=== PATIENT | female | born 1935 | race Caucasian/White ===

== ENCOUNTER 2017-04-09 06:28 | Day surgery (SDC) | payer OTHER ==
[~2017-04-09] VITALS: Ht 160 cm; Wt 81.0 kg
[2017-04-09] MEDS ORDERED: IOHEXOL 350 MG/ML 50 ML BTL (for Cath Lab) OTHER ONE (06:29)
[2017-04-09] MEDS ORDERED: ATOR20TA15 PO (06:46)
[2017-04-09] MEDS ORDERED: AMLO5TAB2 PO (06:46)
[2017-04-09] MEDS ORDERED: iron PO (06:46)
[2017-04-09] MEDS ORDERED: ECASA81 PO (06:46)
[2017-04-09] MEDS ORDERED: MULT-65 PO (06:46)
[2017-04-09 06:50] VITALS: BP 149/86; PULSE 86; RESP 18; O2SAT 98
[2017-04-09] MEDS ORDERED: NS 1000P @30 MLS/HR (KVO) IV SCH (07:00)
[2017-04-09 07:33] LABS: AUTOMATED NEUTROPHIL # 4.7 TH/MM3 (1.8-7.7); BASOPHIL # 0.1 TH/MM3 (0-0.2); BASOPHIL % 0.9 % (0.0-2.0); EOSINOPHIL # 0.1 TH/MM3 (0-0.4); EOSINOPHIL % 1.9 % (0.0-4.0); HEMOGLOBIN 14.4 GM/DL (11.6-15.3); LYMPH % 14.4 % (9.0-44.0); LYMPHOCYTE # 0.9 TH/MM3 (1.0-4.8); MEAN CELL VOLUME 91.8 FL (80.0-100.0); MEAN CORPUSCULAR HEMOGLOBIN 30.8 PG (27.0-34.0); MEAN CORPUSCULAR HGB CONC 33.6 % (32.0-36.0); MONO % 8.8 % (0.0-8.0); MONOCYTE # 0.6 TH/MM3 (0-0.9); PLATELET COUNT 188 TH/MM3 (150-450); RED BLOOD COUNT 4.68 MIL/MM3 (4.00-5.30); RED CELL DISTRIBUTION WIDTH 13.8 % (11.6-17.2); WHITE BLOOD COUNT 6.3 TH/MM3 (4.0-11.0)
[2017-04-09 08:46] LABS: INTERNATIONAL NORMALIZED RATIO 1.1 RATIO; PROTHROMBIN TIME - PATIENT 10.7 SEC (9.8-11.6)
[2017-04-09] MEDS ORDERED: HEPARIN-NS/PF FLUSH BAG 2,000 ML IV FLUSH ONE (08:50)
[2017-04-09] MEDS ORDERED: NITROGLYCERIN INJ 5 ML ONE (08:51)
[2017-04-09] MEDS ORDERED: VERAPAMIL HCL 5 MG/2 ML VIAL ONE (08:51)
[2017-04-09] MEDS ORDERED: HEPARIN SODIUM - IV 10,000 UNITS/10 ML VIAL ONE (08:51)
[2017-04-09 08:53] LABS: BICARBONATE 28.5 MEQ/L (21.0-32.0); CALCIUM 9.2 MG/DL (8.5-10.1); CREATININE 0.91 MG/DL (0.50-1.00)
[2017-04-09] MEDS ORDERED: MIDAZOLAM HCL 2 MG/2 ML VIAL ONE (08:58)
--- NOTE | 2017-04-09 09:57 | CATHPROC ---
fromAtoB HIS Report Study Information Study Number Admission Scheduled Start Study Start [id number] Apr 09 2017 6:28AM 04/09/2017 Apr 09 2017 8:54AM [place] Service Cardiac Catheterization Admit Source Facility Department Other [facility] - Client Services Manager Physician and Clinical Staff Initial Derrick Marin Tandem Mill Operator Tiffanie Haro,RN Recorder Ana Maria Chavez RT(R) (BS) Scrub Tiffanie Esposito RT(R) Procedures Performed Procedure Location (Site) Vessel Name Coronary Angiograms LCA Left Coronary Coronary Angiograms RCA Right Coronary L Heart Cath Wire insertion Radial (right) Radial Art. Equipment Time Assistant To The President Description Size Mfg Part Number Used/Scraped TRANSDUCER, TRUWAVE [id number] 09:11 DINERO SHORE * Used W/STOCKCOCK *[id number] *[id number] [id number] *[id number] [id number] *[id number] 09:11 [employer] PACK, CCL CUSTOM * Used *[id number] 09:11 [employer] SUPPORT, ARTERIAL ADULT [id number] *[id number] Used [id number] 09:27 [employer]/AVE EBU 4.0 SH Z2 GUIDE CATHETER FR 6 Used *[id number] BAND, RADIAL COMPRESSION TR [id number] 09:43 [employer] MEDICAL 24CM Used SHORT 24 *[id number] 09:11 [employer] MEDICAL WIRE, EXCHANGE 260CM 3MMJ 260CM Used *[id number] 09:11 NAMIC MANIFOLD, 4 PORT * Used *[id number] 09:11 [employer] OMNIPAQUE, 350 MG, 150ML 150ML [id number] Used [id number] 09:11 [employer] BLANKET,WARM AIR CCL * Used *[id number] SHEATH, FR6 TRANSRADIAL [id number] 09:11 [employer] FR 6 Used SLENDER 10CM *[id number] 09:26 [employer] PRIME WIRE, VERRATA 185CM 185CM [id number] *[id number] Used Equipment Model, Serial, Lot Number and Expiration Data Description Model Number Serial Number Lot Number Expiration Date EBU 4.0 SH Z2 GUIDE CATHETER [id number] 02-21-2019 PRIME WIRE, VERRATA 185CM [id number] 03-17-2020 History: Current Medications Medication Dosage/Unit Route Frequency Last Date/Time Taken Statins (any) History: Allergies Allergy Reaction No Known Allergies History: Risk Factors Family History of Hypertension Dyslipidemia Previous OR Previous Heart Failure Premature CAD Yes Yes No No No Prior Valve Prior PCI Prior CABG Surgery No No No Cerebrovascular Peripheral Artery Chronic Lung On Dialysis Diabetes Disease Disease Disease No No No No No History: Stress Tests Stress or Imaging Studies Performed Yes Standard Exercise Stress Test No Stress Echo No Stress Test SPECT Stress Test SPECT Result Stress Test SPECT Ischemia Risk/Extent Yes Positive Intermediate Stress Test CMR No Cardiac CTA Coronary Calcium Score No No History: Other Current Smoker No Labs Hgb (g/dl) Hct (%) RBC (MIL/MM3) WBC (l/cumm) Platelets (thousands) 11.60-17.00 35.00-51.00 4.00-5.90 4.00-11.00 150.00-450.00 14.4 43 4.6 6.3 188 Glucose (mg/dl) BUN (mg/dl) Creatinine (mg/dl) BUN:Creatinine (1:x) 74.00-106.00 7.00-18.00 0.50-1.30 10.00-20.00 92 22 0.9 24.4 Na (meq/l) K (meq/l) Cl (meq/l) CO2 (mmol/L) 136.00-145.00 3.50-5.10 98.00-107.00 21.00-32.00 142 3.7 107 28.5 INR (PTT:PT) 0.90-1.10 1.1 CPK-MB (ng/ML) 0.50-3.60 Not Drawn Medication Medication Total Dose (Bolus/Oral) Medication Total Dosage/Unit 1% XYLOCAINE 1 mL FENTANYL 25 mcg HEPARIN 5000 units RADIAL COCKTAIL 1 units VERSED 0.5 mg Medications (Bolus/Oral) Medication Time Given Dosage/Unit Administered By Reason FENTANYL 04/09/2017 9:08:51 AM 25 mcg Tiffanie Haro 25 mcg FENTANYL given in lab by Tiffanie Haro RN in Right Wrist via Peripheral IV. 1% XYLOCAINE 04/09/2017 9:09:05 AM 1 mL Derrick Bill 1 mL 1% XYLOCAINE given in lab by Derrick Bill in Right Radial via Subcutaneous. VERSED 04/09/2017 9:09:43 AM 0.5 mg Tiffanie Haro 0.5 mg VERSED given in lab by Tiffanie Haro, RN in Right Wrist via Peripheral IV. Ntg 200mcg Verapamil 2.5mg Heparin RADIAL COCKTAIL 04/09/2017 9:11:31 AM 1 units Derrick Bill 3000U 1 units RADIAL COCKTAIL given in lab by Derrick Bill via Radial. Reason: Ntg 200mcg Verapamil 2.5mg Heparin 3200U. HEPARIN 04/09/2017 9:28:32 AM 5000 units Tiffanie Haro 5000 units HEPARIN given in lab by Tiffanie Haro, RN in Right Wrist via Peripheral IV. Medication (Drip) Medication Time Given Dosage/Unit Concentration/Unit Diluent (ml) Solution IV Solutions 04/09/2017 8:55:01 AM 0 mL (IV) 500 NaCl .9 IV Solutions given in lab by Tiffanie Haro, RN in Right Wrist via Peripheral IV. Pump/Drip Flow = 30 ml/hr using NaCl .9. Initial Case Assessment Cardiovascular HR Rhythm NIBP Chest Pain 54 18 147/78 0 Edema Present Skin color Skin None Normal Warm Dry Circulatory - Right Pulses Dorsalis Pedis Femoral Radial 2 2 2 Scale (0,1,2,3,4,d) Circulatory - Left Pulses Dorsalis Pedis Femoral Radial 2 2 Scale (0,1,2,3,4,d) Circulatory - Lower Extremities Color Lower Right Color Lower Left Normal Normal Neurological State Oriented to time-place- Alert Moves all extremities person Respiration - General Respiration Rate SpO2 (%) (B/min) 15 98 Chronological Log Time Study Chronological Log 8:44:46 Patient arrived via Bed. 8:44:52 Patient Name, D.O.B, / Armband Verified By R.N. Vitals capture started with the following parameters, Patient=Adult, Interval=5 min, Initial Pr zurivi=022 mmHg, 8:53:43 Deflation Rate=5 mmHg, Cuff placed on Left Arm 8:53:55 Consent signed by the physician and the patient and verified by the Client Services Manager staff. 8:53:56 Pre-op and post- op instructions given; patient acknowledges understanding of instructions. 8:53:57 Verbal Stimulation=2 Physical Stimulation=2 Airway=2 Respiration=2 TOTAL=8. (0=absent, 1=li mited, 2=present) 8:53:59 Presedation assessment performed by Client Services Manager RN. 8:54:10 Allens test performed on the right radial and ulnar artery. 8:54:12 Vitals capture stopped. 8:54:22 Reference ECG taken 8:54:51 Allens test performed on the right radial and ulnar artery. 8:54:54 Patient has been NPO for More than 6Hrs. 8:54:56 Skin Breakdown none per pt 8:54:58 Patient Warmer Placed on the Table. 8:55:00 Miladys Prominences Protected 8:55:00 A # 20 IV was noted in the Wrist (right). Grade = 0 IV Solutions given in lab by Tiffanie Haro, RN in Right Wrist via Peripheral IV. Pump/Drip Flow = 30 ml/hr using NaCl 8:55:01 .9. 8:55:02 History and physical on the chart or being dictated. Assessment: Initial Case, HR=54 BPM, Rhythm=18, OSBV=226/78 mmhg, Chest Pain=0, Edema=None, [place] r=Normal, Skin = Warm, Dry Right Pulses: Ivan Ped=2, Femoral=2, Radial=2 Left Pulses: Ivan Ped=2, Femoral=2 8:55:02 Lower Right Extremities: Color=Normal Lower Left Extremities: Color=Normal Neurological: State=Alert, Ox3, FIORE Respiration: Resp=15 B/min, SpO2=98 % Vitals capture started with the following parameters, Patient=Adult, Interval=5 min, Initial Pre zlnsi=719 mmHg, 8:58:22 Deflation Rate=5 mmHg, Cuff placed on Left Arm 8:59:03 HR=54 bpm, QKYX=764/78 mmhg, SpO2=98.0 %, Resp=21 B/min, Pain=0, Maryjo=10, Almanzar=2 9:00:49 Right Radial and groin(s) prepped with 2% chlorhexidine, and draped after a 3 min. waiting t robi. 9:03:57 HR=65 bpm, ISNW=725/75 mmhg, SpO2=98.0 %, Resp=24 B/min, Pain=0, Maryjo=10, Almanzar=2 9:06:19 Pressure channel 1 zeroed. Time Out. Correct patient, correct procedure, correct physician, power injector not loaded with contrast with surgical 9:08:24 team present. Time Out Concurred by MD and individual staff in procedure. 9:08:39 Case Start 9:08:51 25 mcg FENTANYL given in lab by Tiffanie Haro, RN in Right Wrist via Peripheral IV. 9:08:59 HR=57 bpm, ATHK=744/75 mmhg, SpO2=97.0 %, Resp=37 B/min, Pain=0, Maryjo=10, Almanzar=2 9:09:05 1 mL 1% XYLOCAINE given in lab by Derrick Bill in Right Radial via Subcutaneous. 9:09:43 0.5 mg VERSED given in lab by Tiffanie Haro, RN in Right Wrist via Peripheral IV. 9:10:52 Access site was right Radial Artery. A SHEATH, FR6 TRANSRADIAL SLENDER 10CM FR 6 was advanced into the Radial (right) using the Percu paulo 9:11:04 technique. 1 units RADIAL COCKTAIL given in lab by Derrick Bill via Radial. Reason: Ntg 200mcg Verap kvng 2.5mg 9:11:31 Heparin 3200U. A JR 4.0 INFINITI CATHETER FR 5 was advanced over a wire. OMNIPAQUE, 350 MG, 150ML 150ML was use d for 9:12:29 injections. 9:14:02 HR=65 bpm, NUZA=231/65 mmhg, SpO2=90.0 %, Resp=24 B/min, Pain=0, Maryjo=10, Almanzar=2 Recorded Pressure: LV, HR=77, Condition=Condition 1 9:14:32 (Left Ventricle) LV 111/0/3 Recorded Pressure: LV, Ao, HR=65, Condition=Condition 1 9:14:56 (Left Ventricle) LV 100/2/7, (Aorta) Ao 102/53/75 Recorded Pressure: Ao, HR=86, Condition=Condition 1 9:15:13 (Aorta) Ao 94/53/72 9:15:43 The RCA was injected and visualized at various angles. OMNIPAQUE, 350 MG, 150ML 150ML used. After removing the current catheter a JL 3.5 INFINITI CATHETER FR 5 was advanced over a WIRE, EX CHANGE 260CM 9:16:41 3MMJ 260CM. 9:18:55 HR=65 bpm, GMRU=869/69 mmhg, SpO2=94.0 %, Resp=16 B/min, Pain=0, Maryjo=10, Almanzar=2 After removing the current catheter a JL 4.0 INFINITI CATHETER FR 5 was advanced over a WIRE, EX CHANGE 260CM 9:20:42 3MMJ 260CM. 9:22:57 The LCA was injected and visualized at various angles. OMNIPAQUE, 350 MG, 150ML 150ML used. 9:23:58 HR=59 bpm, EYRG=321/72 mmhg, SpO2=98.0 %, Resp=11 B/min, Pain=0, Maryjo=10, Almanzar=2 9:26:45 A WIRE, EXCHANGE 260CM 3MMJ 260CM was inserted via Radial (right). 9:27:04 Catheter was removed A EBU 4.0 SH Z2 GUIDE CATHETER FR 6 was advanced over a wire. OMNIPAQUE, 350 MG, 150ML 150ML w as used for 9:28:09 injections. 9:28:32 5000 units HEPARIN given in lab by Tiffanie Haro RN in Right Wrist via Peripheral IV. 9:28:59 HR=57 bpm, ZYWF=551/72 mmhg, NqN8=499.0 %, Resp=19 B/min, Pain=0, Maryjo=10, Almanzar=2 9:31:26 A PRIME WIRE, VERRATA 185CM 185CM was inserted via Radial (right). 9:33:58 HR=60 bpm, RGGO=145/75 mmhg, SpO2=99.0 %, Resp=15 B/min, Pain=0, Maryjo=10, Almanzar=2 9:34:33 Flow Wire was was placed in the LCA. The IFR measures 0.98 Percent. 9:36:49 Flow Wire was was placed in the LAD Mid. The FFR measures ~FFR~ percent. The IFR measures 0.98 Percent. 9:39:01 HR=53 bpm, YHXK=256/71 mmhg, SpO2=99.0 %, Resp=14 B/min, Pain=0, Maryjo=10, Almanzar=2 9:42:29 Wire removed 9:42:42 A WIRE, EXCHANGE 260CM 3MMJ 260CM was inserted via Radial (right). 9:42:54 Catheter was removed 9:42:55 Wire removed 9:42:58 Case End 9:43:07 Catheter(s) removed without difficulty 9:43:17 Bedside Report will be given. 9:43:51 A Left Heart Cath was performed. 9:44:37 HR=88 bpm, QIJL=622/87 mmhg, SpO2=97.0 %, Resp=18 B/min, Pain=0, Maryjo=10, Almanzar=2 Radial Compression Device Used. 13 mLs of air placed in BAND, RADIAL COMPRESSION TR SHORT 24 2 4CM. Affected 9:45:11 hand 98 % O2 saturation. 9:49:01 HR=57 bpm, NCVM=743/75 mmhg, SpO2=99.0 %, Resp=21 B/min, Pain=0, Maryjo=10, Almanzar=2 9:51:11 Vitals capture stopped. 9:56:45 Patient moved to [facility] End Study - Contrast Media Used In Study Contrast Total Opened (mL) Total Used (mL) Total Wasted (mL) Omnipaque 45 45 0 End Study - Maximum Contrast Load Max Contrast Load (mL) 450.0 End Study - Radiation Exposure Fluoro Time (minutes) 9.4 End Study - Sheaths Sheaths Pulled By Sheath Hold Time (min) Tiffanie Esposito End Study - Patient Disposition Complications Transferred To Interventional Outcome No Client Services Manager Holding No attempt made
[2017-04-09] MEDS ORDERED: MISC INFORMATION XX ONE (10:00)
--- NOTE | 2017-04-09 13:49 | EKG ---
Date Performed: 04/09/2017 Time Performed: 07:25:52 PTAGE: 81 years EKG: Sinus bradycardia. Normal ECG except for rate NO PREVIOUS TRACING 04/08/2017 1925 DOCTOR: Lorena Mcgraw Interpretating Date/Time 04/09/2017 13:48:38
--- NOTE | 2017-04-10 08:14 | MA ---
cc: DERRICK DEGROOT DO DATE 04/09/2017 PROCEDURE 1. Left heart catheterization. 2. Coronary angiogram. 3. Moderate sedation, 30 minutes. 4. iFR (instantaneous wave-free ratio) of LAD. 5. iFR (instantaneous wave-free ratio) of diagonal. PREPROCEDURE DIAGNOSIS 1. Abnormal stress test. 2. Abnormal EKG. 3. Preoperative cardiovascular evaluation. POSTPROCEDURE DIAGNOSIS Mild coronary artery disease. MEDICATION Versed 0.5 mg, fentanyl 25 mcg, heparin 8200 units, nitro 200 mcg, verapamil 2.5 mg. CONTRAST USED 45 cc. FLUOROSCOPY 9.4 minutes. SEDATION Moderate sedation, 30 minutes. ESTIMATED BLOOD LOSS 10 cc. PROCEDURAL SUMMARY Beatriz Gilbert is a pleasant 81-year-old female who sees my partner Dr. Lugo in the office. She underwent stress testing before knee surgery. This was found to be abnormal and she was recommended cardiac catheterization. The risks, benefits and alternatives were explained to her and she consented to such. She was brought to the lab and prepped in the usual sterile fashion. The right radial artery was accessed using a modified Seldinger technique and placement of a 5/6 Martiniquais Slender sheath. This was easily aspirated and flushed. A JR4 was advanced over a J-wire to the ascending aorta and across the aortic valve for measurement of left ventricular pressure. This was pulled back across the aortic valve showing no significant gradient of aortic stenosis. The JR4 was used for selective angiography of the right coronary artery system. This was exchanged out for a JL 3.5 which was used for selective angiography of the left coronary artery system. As there was concern for anterior ischemia on her stress test as well as EKG changes concerning for ischemia in this area but appearing to only be moderate disease on angiogram it was felt that it was appropriate to iFR the LAD and diagonal to define that these lesions were not significant enough to intervene on before surgery. An EBU 4 guide was inserted. Heparin was given as an anticoagulant. A Verrata wire was taken down the diagonal as this was the bigger of the vessels compared to the LAD and iFR was measured at 0.98 showing nonsignificant stenosis. The Verrata was then pulled back and inserted into the LAD and iFR was done again at 0.99 for the LAD showing nonsignificant stenosis. The wire was removed. Angiogram showed no disruption of the coronary anatomy. The guide was removed over a J-wire. A radial band was placed over the arteriotomy site for hemostasis. 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 FINDINGS Left Main: Normal size vessel with no significant disease. It bifurcates into an LAD and circumflex. LAD: 20% disease in the proximal portion. It gives off one large diagonal which is overall larger than the LAD. At the ostial portion it has a 50% stenosis (iFR 0.98 showing nonsignificant stenosis) and then bifurcates into an upper and lower branch. LAD continues as a smaller vessel past this with 40% stenosis and no significant disease. Left Circumflex: Overall a small vessel with mild luminal irregularities throughout, but no significant disease. RCA: Large dominant vessel with mild luminal irregularities supplying a PDA as well as a large PLV with no significant disease. LVEDP is 7. IMPRESSION 1. Mild coronary artery disease as above. 2. Preoperative cardiovascular evaluation for knee surgery. RECOMMENDATIONS 1. Ms. Gilbert appears to have mild coronary artery disease. She will be continued on medical management. 2. She will follow-up with Dr. Lugo for final cardiovascular risk assessment before knee surgery. Thank you for allowing me to see Beatriz Gilbert. If there are any questions, please do not hesitate to call. Derrick Degroot DO VGP/BT /11:51 PM /7:56 AM
== END 2017-04-09 14:55 | disposition home or self-care (01) ==
LOC: HDOC 06:28 → HDIC 06:28 → HDOC 14:55
PROVIDERS: ATTEND Nuclear Medicine Nuclear Cardiology
DX: I25.10 Atherosclerotic heart disease of native coronary artery without angina pectoris (principal); R94.31 Abnormal electrocardiogram [ECG] [EKG]; I11.9 Hypertensive heart disease without heart failure; Q25.46 Tortuous aortic arch; E78.5 Hyperlipidemia, unspecified; E55.9 Vitamin D deficiency, unspecified; I77.9 Disorder of arteries and arterioles, unspecified; K44.9 Diaphragmatic hernia without obstruction or gangrene; R06.02 Shortness of breath; B37.9 Candidiasis, unspecified; Z85.3 Personal history of malignant neoplasm of breast
CPT/HCPCS: 80048; 85025; 85610; 85730; 93005; 93458; 93571; 93572; 99152; 99153; C1769; C1887; C1893; J1644; J2250; J3010; Q9967

== ENCOUNTER 2017-06-28 18:53 | Observation (INO) | payer OTHER ==
[~2017-06-28] VITALS: Ht 162.6 cm; Wt 84.9 kg
[~2017-06-28 18:53] MED LIST: AMLO5TAB2 PO; ATOR20TA15 PO; ECASA81 PO; MULT-65 PO; iron PO
[2017-06-28 18:56] VITALS: BP 141/70; PULSE 78; RESP 26; TEMP 99; O2SAT 96
[2017-06-28] MEDS ORDERED: SODIUM CHLOR 0.9% 1000 ML INJ 1,000 ML IV SCH (19:01)
[2017-06-28 19:05] VITALS: RESP 16; O2SAT 96
--- NOTE | 2017-06-28 19:09 | PD ---
HPI Chief Complaint: Abdominal Pain Time Seen by Provider: 19:01 Travel History International Travel<30 days: No Contact w/Intl Traveler<30days: No Traveled to known affect area: No History of Present Illness HPI 81-year-old female complains of abdominal pain with nausea vomiting. Patient states that his symptoms started this afternoon. Patient states that abdominal pain and sharp pain burning pain localized to the upper abdomen. Patient denies any pain radiation. Patient states that the pain has been constant since this afternoon. Patient states that she has intermittent nausea vomiting. Patient noticed small amount of coffee-ground material with the emesis. Patient states that the pain radiates to the right shoulder. Patient denies any headache. Patient denies any chest pain or shortness of breath. Patient denies any back pain. 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 Patient has history of breast cancer status post left mastectomy. Patient also has history hypertension, hyperlipidemia, osteoarthritis, CAD status post angioplasty. Patient on aspirin 81 mg 2 tablets daily. Patient status post Left knee replacement a week ago. PFSH Past Medical History Hx Anticoagulant Therapy: Yes (162MG ASA) Autoimmune Disease: No Blood Disorders: No Cancer: Yes (L BREAST) Cardiovascular Problems: No GERD: Yes Genitourinary: No Hypertension: Yes Musculoskeletal: Yes Neurologic: No Psychiatric: No Respiratory: No Past Surgical History Abdominal Surgery: Yes (KIDNEY STONES) AICD: No Cardiac Surgery: No Ear Surgery: No Endocrine Surgery: No Eye Surgery: No Genitourinary Surgery: No Gynecologic Surgery: Yes (OVARY REMOVED) Oral Surgery: No Pacemaker: No Thoracic Surgery: No Social History Alcohol Use: No Tobacco Use: No Substance Use: No Allergies-Medications (Allergen,Severity, Reaction): Coded Allergies: No Known Allergies (Verified Allergy, Unknown, 06/28/17) Reported Meds & Prescriptions Reported Meds & Active Scripts Active Reported Multi-Vitamin Daily (Multiple Vitamin) 1 Tab Tab 1 Tab PO DAILY [iron] 325 Mg PO DAILY Atorvastatin (Atorvastatin Calcium) 20 Mg Tab 20 Mg PO HS Aspirin DR (Aspirin) 81 Mg Tabdr 81 Mg PO DAILY Amlodipine (Amlodipine Besylate) 5 Mg Tab 5 Mg PO DAILY Review of Systems General / Constitutional: No: Fever Eyes: No: Visual changes HENT: No: Headaches Cardiovascular: No: Chest Pain or Discomfort Respiratory: No: Shortness of Breath Gastrointestinal: Positive: Nausea, Vomiting, Abdominal Pain, Hematemesis Genitourinary: No: Dysuria Musculoskeletal: No: Pain Skin: No Rash Neurologic: No: Weakness Psychiatric: No: Depression Endocrine: No: Polydipsia Hematologic/Lymphatic: No: Easy Bruising Physical Exam Narrative GENERAL: Well-nourished, well-developed patient. SKIN: Focused skin assessment warm/dry. HEAD: Normocephalic. EYES: No scleral icterus. No injection or drainage. NECK: Supple, trachea midline. No JVD or lymphadenopathy. CARDIOVASCULAR: Regular rate and rhythm without murmurs, gallops, or rubs. RESPIRATORY: Breath sounds equal bilaterally. No accessory muscle use. GASTROINTESTINAL: Abdomen soft, non-tender, nondistended. MUSCULOSKELETAL: No cyanosis, or edema. BACK: Nontender without obvious deformity. No CVA tenderness. Neurologic exam normal. Data Data Last Documented VS Vital Signs Date Time Temp Pulse Resp B/P (MAP) Pulse Ox O2 Delivery O2 Flow Rate FiO2 06/28/17 21:00 74 16 137/70 (92) 96 Room Air 06/28/17 18:56 99.0 Orders Orders Complete Blood Count With Diff (06/28/17 19:) Comprehensive Metabolic Panel (06/28/17 19:) Lipase (06/28/17 19:01) Prothrombin Time / Inr (Pt) (06/28/17 19:) Urinalysis - C+S If Indicated (06/28/17 19:01) Ct Abd/Pel W Iv Contrast(Rout) (06/28/17 19:01) Iv Access Insert/Monitor (06/28/17 19:) Ecg Monitoring (06/28/17 19:) Oximetry (06/28/17 19:) Ondansetron Inj (Zofran Inj) (06/28/17 19:15) Pantoprazole Inj (Protonix Inj) (06/28/17 19:15) Sodium Chlor 0.9% 1000 Ml Inj (Ns 1000 M (06/28/17 19:01) Sodium Chloride 0.9% Flush (Ns Flush) (06/28/17 19:15) Urine Culture (06/28/17 19:20) Ceftriaxone Inj (Rocephin Inj) (06/28/17 21:45) Labs Laboratory Tests Test 06/28/17 19:12 06/28/17 19:20 White Blood Count 8.0 TH/MM3 Red Blood Count 4.39 MIL/MM3 Hemoglobin 12.9 GM/DL Hematocrit 39.9 % Mean Corpuscular Volume 91.0 FL Mean Corpuscular Hemoglobin 29.3 PG Mean Corpuscular Hemoglobin Concent 32.2 % Red Cell Distribution Width 13.5 % Platelet Count 253 TH/MM3 Mean Platelet Volume 8.8 FL Neutrophils (%) (Auto) 80.5 % Lymphocytes (%) (Auto) 9.0 % Monocytes (%) (Auto) 6.8 % Eosinophils (%) (Auto) 0.6 % Basophils (%) (Auto) 3.1 % Neutrophils # (Auto) 6.6 TH/MM3 Lymphocytes # (Auto) 0.7 TH/MM3 Monocytes # (Auto) 0.5 TH/MM3 Eosinophils # (Auto) 0.0 TH/MM3 Basophils # (Auto) 0.2 TH/MM3 CBC Comment DIFF FINAL Differential Comment Prothrombin Time 10.3 SEC Prothromb Time International Ratio 1.0 RATIO Blood Urea Nitrogen 22 MG/DL Creatinine 0.96 MG/DL Random Glucose 147 MG/DL Total Protein 7.2 GM/DL Albumin 2.6 GM/DL Calcium Level 9.5 MG/DL Alkaline Phosphatase 95 U/L Aspartate Amino Transf (AST/SGOT) 28 U/L Alanine Aminotransferase (ALT/SGPT) 18 U/L Total Bilirubin 0.9 MG/DL Sodium Level 138 MEQ/L Potassium Level 4.5 MEQ/L Chloride Level 102 MEQ/L Carbon Dioxide Level 27.9 MEQ/L Anion Gap 8 MEQ/L Estimat Glomerular Filtration Rate 56 ML/MIN Lipase 1162 U/L Urine Color YELLOW Urine Turbidity CLEAR Urine pH 6.5 Urine Specific [place] 1.010 Urine Protein NEG mg/dL Urine Glucose (UA) NEG mg/dL Urine Ketones NEG mg/dL Urine Occult Blood NEG Urine Nitrite NEG Urine Bilirubin NEG Urine Urobilinogen 0.2 MG/DL Urine Leukocyte Esterase LARGE Urine RBC 0-3 /hpf Urine WBC 20-24 /hpf Urine Squamous Epithelial Cells 6-8 /hpf Urine Renal Epithelial Cells 0-5 /hpf Urine Bacteria OCC /hpf Urine Yeast (Budding) Microscopic Urinalysis Comment CULTURE INDICATED MDM Medical Decision Making Medical Screen Exam Complete: Yes Emergency Medical Condition: Yes Interpretation(s) 2030 8 PM. CBC within normal limits. WBC 8.0. 80 neutrophil. BUN 22. Creatinine 0.96. GFR 56. Albumin 2.6. Lipase 1162. UA positive for WBC and bacteria. Differential Diagnosis Differential diagnosis includes gastroenteritis, gastritis, PUD, pancreatitis, cholecystitis, colitis, UTI, pyelonephritis, nephrolithiasis, dehydration, upper GI bleed. Narrative Course 81-year-old female with abdominal pain, nausea vomiting and possible coffee- ground emesis. Normal saline solution 100 cc an hour. Protonix 40 mg IV. Zofran 4 mg IV. Rocephin 1 g IV given. Diagnosis Primary Impression: Acute pancreatitis Qualified Codes: K85.90 - Acute pancreatitis without necrosis or infection, unspecified Additional Impression: UTI (urinary tract infection) Qualified Codes: N30.00 - Acute cystitis without hematuria Admitting Information Admitting Physician Requests: Admit Jon Brooks MD June 28, 2017 19:09
[2017-06-28] MEDS ORDERED: PANTOPRAZOLE SODIUM 40 MG VIAL IVP ONE (19:15)
[2017-06-28] MEDS ORDERED: SODIUM CHLORIDE 0.9% FLUSH 10 ML FLUSH IV FLUSH PRN ×2 (19:15→22:00)
[2017-06-28] MEDS ORDERED: ONDANSETRON HCL 4 MG/2 ML VIAL IVP ONE (19:15)
[2017-06-28 19:20] LABS: AUTOMATED NEUTROPHIL # 6.6 TH/MM3 (1.8-7.7); BASOPHIL # 0.2 TH/MM3 (0-0.2); BASOPHIL % 3.1 % (0.0-2.0); EOSINOPHIL % 0.6 % (0.0-4.0); HEMATOCRIT 39.9 % (35.0-46.0); HEMOGLOBIN 12.9 GM/DL (11.6-15.3); LYMPHOCYTE # 0.7 TH/MM3 (1.0-4.8); MEAN CORPUSCULAR HEMOGLOBIN 29.3 PG (27.0-34.0); MEAN CORPUSCULAR HGB CONC 32.2 % (32.0-36.0); MEAN PLATELET VOLUME 8.8 FL (7.0-11.0); MONO % 6.8 % (0.0-8.0); MONOCYTE # 0.5 TH/MM3 (0-0.9); NEUT % 80.5 % (16.0-70.0); PLATELET COUNT 253 TH/MM3 (150-450); RED BLOOD COUNT 4.39 MIL/MM3 (4.00-5.30); RED CELL DISTRIBUTION WIDTH 13.5 % (11.6-17.2)
[2017-06-28 19:26] LABS: CHLORIDE 102 MEQ/L (98-107); SODIUM (NA) 138 MEQ/L (136-145)
[2017-06-28 19:26] LABS: BILIRUBIN, URINE NEG (NEG); BLOOD, URINE NEG (NEG); GLUCOSE,URINE NEG (NEG); KETONE, URINE NEG (NEG); NITRITE,URINE NEG (NEG); PH, URINE 6.5 (5.0-8.5); URINE COLOR YELLOW (YELLW/STRAW); URINE LEUKOCYTE ESTERASE LARGE (NEG)
[2017-06-28 19:29] LABS: CALCIUM 9.5 MG/DL (8.5-10.1)
[2017-06-28 19:30] LABS: ALBUMIN 2.6 GM/DL (3.4-5.0); BICARBONATE 27.9 MEQ/L (21.0-32.0); BLOOD UREA NITROGEN 22 MG/DL (7-18); GLUCOSE,RANDOM 147 MG/DL (74-106); PROTHROMBIN TIME - PATIENT 10.3 SEC (9.8-11.6)
[2017-06-28 19:33] LABS: RBC, URINE 0-3 /hpf (0-3); RENAL EPITHELIAL CELLS 0-5 /hpf
[2017-06-28 19:33] LABS: ALT (GPT) 18 U/L (10-53); AST (GOT) 28 U/L (15-37); CREATININE 0.96 MG/DL (0.50-1.00); GLOMERULAR FILTRATION RATE 56 ML/MIN (>89)
[2017-06-28 19:34] LABS: BACTERIA, URINE OCC /hpf
[2017-06-28 19:35] LABS: TOTAL BILIRUBIN ADULT 0.9 MG/DL (0.2-1.0); TOTAL PROTEIN 7.2 GM/DL (6.4-8.2)
[2017-06-28 19:36] LABS: ALKALINE PHOSPHATASE 95 U/L (45-117)
[2017-06-28 21:00] VITALS: BP 137/70; PULSE 74; RESP 16; O2SAT 96
[2017-06-28] MEDS ORDERED: cefTRIAXone INJ 1,000 MG in SODIUM CHLORIDE 0.9% INJ 100 ML IV ONE (21:45)
[2017-06-28] MEDS ORDERED: IOHEXOL 350 MG/ML 10 ML VIAL (for RAD DIAG) IVCONTRAST ONE (21:48)
--- NOTE | 2017-06-28 21:57 | RADRPT ---
EXAM DATE/TIME: 06/28/2017 21:13 [facility] COMPARISON: No previous studies available for comparison. INDICATIONS : Epigastric pain. IV CONTRAST: 100 cc Omnipaque 350 (iohexol) IV ORAL CONTRAST: No oral contrast ingested. RADIATION DOSE: 16.87 CTDIvol (mGy) MEDICAL HISTORY : Hypertension. Gastroesophageal reflux disease. Hernia, hiatal. SURGICAL HISTORY : Non-responsive. oophorectomy. ENCOUNTER: Initial ACUITY: 1 day PAIN SCALE: 5/10 LOCATION: Bilateral upper quadrant TECHNIQUE: Volumetric scanning of the abdomen and pelvis was performed. Using automated exposure control and ad justment of the mA and/or kV according to patient size, radiation dose was kept as low as reasonably achievable to obtain optimal diagnostic quality images. DICOM format image data is available electro nically for review and comparison. FINDINGS: Examination is degraded by patient motion. LOWER LUNGS: Stomach is intrathoracic. There is mild atelectasis in the left base. LIVER: Homogeneous density without lesion. There is no dilation of the biliary tree. No calcified gallston es. SPLEEN: Normal size without lesion. PANCREAS: Within normal limits. KIDNEYS: Left kidney is atrophic. Nonobstructing calcification is present in the apical cortex. Nonobstructing stones in the posterior upper pole collecting system of the right kidney. ADRENAL GLANDS: Within normal limits. VASCULAR: There is no aortic aneurysm. BOWEL/MESENTERY: The stomach is intrathoracic, flipped into the lower chest cavity in organoaxial fashion. There is mi ld gastric distention. The bowel is otherwise focally unremarkable. ABDOMINAL WALL: Within normal limits. RETROPERITONEUM: There is no lymphadenopathy. BLADDER: No wall thickening or mass. REPRODUCTIVE: Within normal limits. INGUINAL: There is no lymphadenopathy or hernia. MUSCULOSKELETAL: Within normal limits for patient age. CONCLUSION: Motion degraded exam. Mildly distended intrathoracic stomach. Atrophic left kidney. Nonobstructing kidney stones. No other definite acute CT findings in the abdomen or pelvis. Sawyer Kincaid MD on June 28, 2017 at 21:50 Board Certified Radiologist. This report was verified electronically.
[2017-06-28] MEDS ORDERED: SENNOSIDES 8.6 MG TAB PO PRN (22:00)
[2017-06-28] MEDS ORDERED: MAGNESIUM HYDROXIDE SUSP 30 ML CUP PO PRN (22:00)
[2017-06-28] MEDS ORDERED: ONDANSETRON HCL 4 MG/2 ML VIAL IVP PRN (22:00)
[2017-06-28] MEDS ORDERED: LACTULOSE SYRUP 20 GM/30 ML CUP PO PRN (22:00)
[2017-06-28] MEDS ORDERED: BISACODYL 10 MG SUPP RECTAL PRN (22:00)
[2017-06-28] MEDS ORDERED: NALOXONE HCL 0.4 MG/ML AMP IV PUSH PRN (22:00)
[2017-06-28] MEDS ORDERED: ACETAMINOPHEN 325 MG TAB PO PRN (22:00)
[2017-06-28] MEDS: SODIUM CHLOR 0.9% 1000 ML INJ 1,000 ML IV SCH (22:45)
[2017-06-28] MEDS: HEPARIN SODIUM - SQ 10,000 UNITS/ML VIAL SQ SCH (23:40)
[2017-06-28 23:41] VITALS: BP 127/62
[2017-06-29] MEDS ORDERED: MORPHINE SULFATE 4 MG/ML INJ IV PUSH ONE (00:15)
[2017-06-29 00:34] VITALS: BP 129/63; PULSE 74; RESP 20; TEMP 99.1; O2SAT 98
[2017-06-29] MEDS: SODIUM CHLOR 0.9% 1000 ML INJ 1,000 ML IV SCH ×2 (04:01→10:26)
[2017-06-29 06:44] LABS: CHLORIDE 109 MEQ/L (98-107); SODIUM (NA) 143 MEQ/L (136-145)
[2017-06-29 06:51] LABS: BASOPHIL % 0.6 % (0.0-2.0); EOSINOPHIL # 0.1 TH/MM3 (0-0.4); EOSINOPHIL % 2.2 % (0.0-4.0); HEMATOCRIT 33.4 % (35.0-46.0); HEMOGLOBIN 10.4 GM/DL (11.6-15.3); LYMPH % 15.2 % (9.0-44.0); MEAN CELL VOLUME 90.9 FL (80.0-100.0); MEAN CORPUSCULAR HEMOGLOBIN 28.5 PG (27.0-34.0); MEAN CORPUSCULAR HGB CONC 31.3 % (32.0-36.0); MEAN PLATELET VOLUME 8.5 FL (7.0-11.0); MONO % 10.2 % (0.0-8.0); MONOCYTE # 0.7 TH/MM3 (0-0.9); NEUT % 71.8 % (16.0-70.0); PLATELET COUNT 227 TH/MM3 (150-450); RED BLOOD COUNT 3.67 MIL/MM3 (4.00-5.30); RED CELL DISTRIBUTION WIDTH 13.4 % (11.6-17.2); WHITE BLOOD COUNT 6.8 TH/MM3 (4.0-11.0)
[2017-06-29 07:23] LABS: ALBUMIN 2.1 GM/DL (3.4-5.0); ALKALINE PHOSPHATASE 66 U/L (45-117); ALT (GPT) 15 U/L (10-53); AST (GOT) 15 U/L (15-37); BICARBONATE 26.4 MEQ/L (21.0-32.0); BLOOD UREA NITROGEN 15 MG/DL (7-18); CALCIUM 8.1 MG/DL (8.5-10.1); CREATININE 0.68 MG/DL (0.50-1.00); GLOMERULAR FILTRATION RATE 83 ML/MIN (>89); GLUCOSE,RANDOM 93 MG/DL (74-106); TOTAL BILIRUBIN ADULT 0.6 MG/DL (0.2-1.0); TOTAL PROTEIN 5.7 GM/DL (6.4-8.2)
[2017-06-29] MEDS ORDERED: MORPHINE SULFATE 4 MG/ML INJ IV PUSH PRN (08:00)
[2017-06-29] MEDS ORDERED: SODIUM CHLORIDE 0.9% FLUSH 10 ML FLUSH IV FLUSH SCH (09:00)
[2017-06-29] MEDS ORDERED: DOCUSATE SODIUM 50 MG/SENNA 8.6 MG TAB PO SCH (09:00)
[2017-06-29 09:29] VITALS: BP 120/58; PULSE 65; RESP 18; TEMP 98.9; O2SAT 95
[2017-06-29] MEDS ORDERED: amLODIPine BESYLATE 5 MG TAB PO SCH (09:30)
[2017-06-29] MEDS ORDERED: PANTOPRAZOLE SOD 40 MG DELAYED RELEASE TAB PO SCH (09:30)
[2017-06-29] MEDS ORDERED: MULTIVITAMIN TAB PO SCH (10:00)
--- NOTE | 2017-06-29 11:56 | RADRPT ---
EXAM DATE/TIME: 06/29/2017 10:49 [facility] COMPARISON: No previous studies available for comparison. INDICATIONS : Nausea and vomiting. MEDICAL HISTORY : Hypercholesterolemia. Gastroesophageal reflux disease. Osteoporosis. Hypertension. Kidney stones. Niesha ast cancer. Coronary artery disease. SURGICAL HISTORY : Total knee replacement, left. Appendectomy. Cardiac catheterization. Left mastectomy. Right ankle s urgery. Completed radiation therapy. Left oophorectomy. Angioplasty. ENCOUNTER: Initial ACUITY: 2 days PAIN SCORE: 3/10 LOCATION: Right upper quadrant MEASUREMENTS: LIVER: 11.4 cm length COMMON DUCT: 5 mm RIGHT KIDNEY: 11.7 x 4.7 x 5.3 cm SPLEEN: 10.0 cm length FINDINGS: LIVER: Normal echotexture without focal lesion or ductal dilatation. COMMON DUCT: No intraluminal mass or stone visualized. GALLBLADDER: Contains no stones, demonstrates no wall thickening or pericholecystic fluid. PANCREAS: The visualized portions are within normal limits. RIGHT KIDNEY: No hydronephrosis, stone or mass. SPLEEN: No focal lesion. CONCLUSION: Negative exam. Roni Nieves MD on June 29, 2017 at 11:50 Board Certified Radiologist. This report was verified electronically.
[2017-06-29] MEDS: HEPARIN SODIUM - SQ 10,000 UNITS/ML VIAL SQ SCH (11:58)
--- NOTE | 2017-06-29 12:01 | HHI.HP ---
[facility] Shahriar Hernandez MD Admission Diagnosis Acute pancreatitis. UTI. Diagnoses: Chief Complaint: Abdominal pain nausea and vomiting Travel History International Travel<30 Days: No Contact w/Intl Traveler <30 Da: No Traveled to Known Affected Are: No History of Present Illness This patient is an 81-year-old female with a history of left knee replacement done recently at another facility. She had been in the rehab facility post surgical treatment of the knee and went to an [employer] [facility] and subsequently had some nausea and vomiting and severe midepigastric to right upper quadrant pain. This is similar to previous episodes which she has had over the past 12 years. Those previous episodes were quite mild, occurred after eating and resolve spontaneously. This time the nausea and vomiting was very severe and persisted so she came to the emergency room. She has had complete relief overnight and has felt back to her baseline. CT of abdomen pelvis was done which did not show any acute findings but a urinalysis was abnormal and her lipase was elevated. Patient says she has heard vaguely about pancreatitis in the past when she started having this intermittent abdominal discomfort. Patient also has been having concern for urinary tract infection. Prior to her surgery recently and there was abnormal urinalysis but no antibiotics were prescribed. She did not have urinary catheterization for her surgery. She reports no dysuria or hematuria or frequency or urgency. She did have abnormal urinalysis on admission. Cultures are pending. Empirically the patient has been started on antibiotics which we will continue. Review of Systems Constitutional: DENIES: Diaphoretic episodes, Fatigue, Fever, Weight gain, Weight loss, Chills, Dizziness, Change in appetite, Night Sweats Endocrine: DENIES: Abnorml menstrual pattern, Heat/cold intolerance, Polydipsia , Polyuria, Polyphagia Eyes: DENIES: Blurred vision, Diplopia, Eye inflammation, Eye pain, Vision loss , Photosensitivity, Double Vision Ears, nose, mouth, throat: DENIES: Tinnitus, Hearing loss, Vertigo, Nasal discharge, Oral lesions, Throat pain, Hoarseness, Ear Pain, Running Nose, Epistaxis, Sinus Pain, Toothache, Odynophagia Respiratory: DENIES: Apneas, Cough, Snoring, Wheezing, Hemoptysis, Sputum production, Shortness of breath Cardiovascular: DENIES: Chest pain, Palpitations, Syncope, Dyspnea on Exertion , PND, Lower Extremity Edema, Orthopnea, Claudication Gastrointestinal: COMPLAINS OF: Abdominal pain, Nausea, Vomiting, DENIES: Black stools, Bloody stools, Constipation, Diarrhea, Difficulty Swallowing, Anorexia Genitourinary: DENIES: Abnormal vaginal bleeding, Dysmenorrhea, Dyspareunia, Sexual dysfunction, Urinary frequency, Urinary incontinence, Urgency, Hematuria , Dysuria, Nocturia, Vaginal discharge Musculoskeletal: COMPLAINS OF: Joint pain Integumentary: DENIES: Abnormal pigmentation, Pruritus, Rash, Nail changes, Breast masses, Breast skin changes, Nipple discharge Hematologic/lymphatic: DENIES: Bruising, Lymphadenopathy Immunologic/allergic: DENIES: Eczema, Urticaria Neurologic: DENIES: Abnormal gait, Headache, Localized weakness, Paresthesias, Seizures, Speech Problems, Tremor, Poor Balance Psychiatric: DENIES: Anxiety, Confusion, Mood changes, Depression, Hallucinations, Agitation, Suicidal Ideation, Homicidal Ideation, Delusions Except as stated in HPI: all other systems reviewed are Neg Past Family Social History Past Medical History Arthritis Left breast cancer status post radiation and tamoxifen 5 years Hypertension Hyperlipidemia Iron deficiency anemia Past Surgical History Cholecystectomy Left knee replacement oophorectomy Reported Medications Reviewed in the EMR Allergies: Coded Allergies: No Known Allergies (Verified Allergy, Unknown, 06/28/17) Active Ordered Medications Reviewed in the EMR Family History Mother at 78 from a heart attack father at 84 Social History Lives independently although recently in a rehab post left knee replacement. No tobacco or alcohol dependency issues Lives next door to her daughter Physical Exam Vital Signs Vital Signs Date Time Temp Pulse Resp B/P (MAP) Pulse Ox O2 Delivery O2 Flow Rate FiO2 06/29/17 09:29 98.9 65 18 120/58 (78) 95 06/29/17 01:00 18 06/29/17 00:34 99.1 74 20 129/63 (85) 98 06/28/17 23:41 75 16 127/62 (83) 96 Nasal Cannula 2.00 06/28/17 21:00 74 16 137/70 (92) 96 Room Air 06/28/17 19:05 16 96 Room Air 06/28/17 18:56 99.0 78 26 141/70 (11) 96 Physical Exam GENERAL: This is a well-nourished, well-developed patient, in no apparent distress. SKIN: No rashes, ecchymoses or lesions. Cool and dry. HEAD: Atraumatic. Normocephalic. No temporal or scalp tenderness. EYES: Pupils equal round and reactive. Extraocular motions intact. No scleral icterus. No injection or drainage. ENT: Nose without bleeding, purulent drainage or septal hematoma. Throat without erythema, tonsillar hypertrophy or exudate. Uvula midline. Airway patent. NECK: Trachea midline. No JVD or lymphadenopathy. Supple, nontender, no meningeal signs. CARDIOVASCULAR: Regular rate and rhythm without murmurs, gallops, or rubs. RESPIRATORY: Clear to auscultation. Breath sounds equal bilaterally. No wheezes , rales, or rhonchi. GASTROINTESTINAL: Abdomen soft, non-tender, nondistended. No hepato-splenomegaly , or palpable masses. No guarding. MUSCULOSKELETAL: Extremities without clubbing, cyanosis, or edema. No joint tenderness, effusion, or edema noted. No calf tenderness. Negative Homans sign bilaterally. NEUROLOGICAL: Awake and alert. Cranial nerves II through XII intact. Motor and sensory grossly within normal limits. Five out of 5 muscle strength in all muscle groups. Normal speech. Laboratory Laboratory Tests Test 06/28/17 19:12 06/28/17 19:20 06/29/17 06:00 White Blood Count 8.0 6.8 Red Blood Count 4.39 3.67 Hemoglobin 12.9 10.4 Hematocrit 39.9 33.4 Mean Corpuscular Volume 91.0 90.9 Mean Corpuscular Hemoglobin 29.3 28.5 Mean Corpuscular Hemoglobin Concent 32.2 31.3 Red Cell Distribution Width 13.5 13.4 Platelet Count 253 227 Mean Platelet Volume 8.8 8.5 Neutrophils (%) (Auto) 80.5 71.8 Lymphocytes (%) (Auto) 9.0 15.2 Monocytes (%) (Auto) 6.8 10.2 Eosinophils (%) (Auto) 0.6 2.2 Basophils (%) (Auto) 3.1 0.6 Neutrophils # (Auto) 6.6 5.0 Lymphocytes # (Auto) 0.7 1.0 Monocytes # (Auto) 0.5 0.7 Eosinophils # (Auto) 0.0 0.1 Basophils # (Auto) 0.2 0.0 CBC Comment DIFF FINAL DIFF FINAL Differential Comment Prothrombin Time 10.3 Prothromb Time International Ratio 1.0 Blood Urea Nitrogen 22 15 Creatinine 0.96 0.68 Random Glucose 147 93 Total Protein 7.2 5.7 Albumin 2.6 2.1 Calcium Level 9.5 8.1 Alkaline Phosphatase 95 66 Aspartate Amino Transf (AST/SGOT) 28 15 Alanine Aminotransferase (ALT/SGPT) 18 15 Total Bilirubin 0.9 0.6 Sodium Level 138 143 Potassium Level 4.5 4.0 Chloride Level 102 109 Carbon Dioxide Level 27.9 26.4 Anion Gap 8 8 Estimat Glomerular Filtration Rate 56 83 Lipase 1162 152 Urine Color YELLOW Urine Turbidity CLEAR Urine pH 6.5 Urine Specific Lynd 1.010 Urine Protein NEG Urine Glucose (UA) NEG Urine Ketones NEG Urine Occult Blood NEG Urine Nitrite NEG Urine Bilirubin NEG Urine Urobilinogen 0.2 Urine Leukocyte Esterase LARGE Urine RBC 0-3 Urine WBC 20-24 Urine Squamous Epithelial Cells 6-8 Urine Renal Epithelial Cells 0-5 Urine Bacteria OCC Urine Yeast (Budding) Microscopic Urinalysis Comment CULTURE INDICATED Date/Time Source Procedure Growth Status 06/28/17 19:20 Urine Clean Catch Urine Culture Pending Received Result Diagram: 06/29/17 0600 06/29/17 0600 Imaging Last Impressions Abdomen/Pelvis CT 06/28/17 190 Signed Impressions: Service Date/Time: Wednesday, June 28, 2017 21:13 - CONCLUSION: Motion degraded exam. Mildly distended intrathoracic stomach. Atrophic left kidney. Nonobstructing kidney stones. No other definite acute CT findings in the abdomen or pelvis. Sawyer Kincaid MD Caprini VTE Risk Assessment Caprini VTE Risk Assessment: Mod/High Risk (score >= 2) Caprini Risk Assessment Model Point Value = 1 Point Value = 2 Point Value = 3 Point Value = 5 Age 41-60 Minor surgery BMI > 25 kg/m2 Swollen legs Varicose veins or History of unexplained or recurrent spontaneous Oral contraceptives or hormone replacement Sepsis (< 1 month) Serious lung disease, including pneumonia (< 1 month) Abnormal pulmonary function Acute myocardial infarction Congestive heart failure (< 1 month) History of inflammatory bowel disease Medical patient at bed rest Age 61-74 Arthroscopic surgery Major open surgery (> 45 min) Laparoscopic surgery (> 45 min) Malignancy Confined to bed (> 72 hours) Immobilizing plaster cast Central venous access Age >= 75 History of VTE Family history of VTE Factor V Leiden Prothrombin [id number] Lupus anticoagulant Anticardiolipin antibodies Elevated serum homocysteine Heparin-induced thrombocytopenia Other congenital or acquired thrombophilia Stroke (< 1 month) Elective arthroplasty Hip, pelvis, or leg fracture Acute spinal cord injury (< 1 month) Prophylaxis Regimen Total Risk Factor Score Risk Level Prophylaxis Regimen 0-1 Low Early ambulation 2 Moderate Order ONE of the following: *Sequential Compression Device (SCD) *Heparin 5000 units SQ BID 3-4 Higher Order ONE of the following medications: *Heparin 5000 units SQ TID *Enoxaparin/Lovenox 40 mg SQ daily (WT < 150 kg, CrCl > 30 mL/min) *Enoxaparin/Lovenox 30 mg SQ daily (WT < 150 kg, CrCl > 10-29 mL/min) *Enoxaparin/Lovenox 30 mg SQ BID (WT < 150 kg, CrCl > 30 mL/min) AND/OR *Sequential Compression Device (SCD) 5 or more Highest Order ONE of the following medications: *Heparin 5000 units SQ TID (Preferred with Epidurals) *Enoxaparin/Lovenox 40 mg SQ daily (WT < 150 kg, CrCl > 30 mL/min) *Enoxaparin/Lovenox 30 mg SQ daily (WT < 150 kg, CrCl > 10-29 mL/min) *Enoxaparin/Lovenox 30 mg SQ BID (WT < 150 kg, CrCl > 30 mL/min) AND *Sequential Compression Device (SCD) Assessment and Plan Problem List: (1) Acute pancreatitis ICD Code: K85.90 - Acute pancreatitis without necrosis or infection, unspecified Status: Acute Plan: Improved Follow-up liver ultrasound Likely patient will need outpatient management as her symptoms are resolved Advance diet (2) UTI (urinary tract infection) ICD Code: N39.0 - Urinary tract infection, site not specified Status: Acute Plan: Continue empiric antibiotics and follow-up cultures Assessment and Plan Ultrasound unremarkable Discharge home Activity weightbearing as tolerated left knee Code Status Full code Discussed Condition With Patient, Kyle ACEVEDO Problem Qualifiers (1) Acute pancreatitis: Qualified Codes: K85.90 - Acute pancreatitis without necrosis or infection, unspecified (2) UTI (urinary tract infection): Qualified Codes: N30.00 - Acute cystitis without hematuria Ramandeep Alicea MD June 29, 2017 12:01
[2017-06-29] MEDS ORDERED: MACR100C2 PO (12:02)
--- NOTE | 2017-06-29 12:02 | HHI.DCPOC ---
Discharge Care Plan Diagnosis: (1) UTI (urinary tract infection) (2) Acute pancreatitis Goals to Promote Your Health * To prevent worsening of your condition and complications * To maintain your health at the optimal level Directions to Meet Your Goals Take your medications as prescribed Follow your dietary instruction Follow activity as directed Keep your appointments as scheduled Take your immunizations and boosters as scheduled If your symptoms worsen call your PCP, if no PCP go to Urgent Care Center or Emergency Room Smoking is Dangerous to Your Health. Avoid second hand smoke Call the 24-hour hour crisis hotline for domestic abuse at Ramandeep Alicea MD June 29, 2017 12:02
[2017-06-29 12:53] VITALS: BP 116/58; PULSE 64; RESP 18; TEMP 98.4; O2SAT 94
[2017-06-29] MEDS ORDERED: ATORVASTATIN 20 MG TAB PO SCH (21:00)
[2017-06-29] MEDS ORDERED: cefTRIAXone INJ 1,000 MG in SODIUM CHLORIDE 0.9% INJ 100 ML IV SCH (22:00)
[2017-06-30] MEDS ORDERED: ASPIRIN EC 81 MG TABEC PO SCH (09:00)
== END 2017-06-29 14:48 ==
LOC: PHED 18:53 → PHEDA 22:03 → PH3B 23:48
PROVIDERS: ADMIT Hospitalist; ATTEND Hospitalist
DX: K85.90 Acute pancreatitis without necrosis or infection, unspecified (principal); N30.00 Acute cystitis without hematuria; N20.0 Calculus of kidney; I25.10 Atherosclerotic heart disease of native coronary artery without angina pectoris; I10 Essential (primary) hypertension; E78.5 Hyperlipidemia, unspecified; N26.1 Atrophy of kidney (terminal); K31.89 Other diseases of stomach and duodenum; K21.9 Gastro-esophageal reflux disease without esophagitis; M19.90 Unspecified osteoarthritis, unspecified site; Z79.899 Other long term (current) drug therapy; Z79.82 Long term (current) use of aspirin; Z85.3 Personal history of malignant neoplasm of breast; Z92.3 Personal history of irradiation; Z98.61 Coronary angioplasty status; Z90.12 Acquired absence of left breast and nipple; Z82.49 Family history of ischemic heart disease and other diseases of the circulatory system
CPT/HCPCS: 74177; 76705; 80053; 81001; 83690; 85025; 85610; 87077; 87086; 87186; 96361; 96365; 96372; 96375; 97163; 99285; C9113; G0378; G8987; G8988; J0696; J1644; J2270; J2405; J7030; Q9967

== ENCOUNTER 2017-07-05 23:28 | Emergency (ER) | payer OTHER ==
[~2017-07-05] VITALS: Ht 162.6 cm; Wt 81.0 kg
[~2017-07-05 23:28] MED LIST changes: +MACR100C2 PO
[2017-07-05 23:32] VITALS: BP 138/73; PULSE 71; RESP 18; TEMP 98.6; O2SAT 97
[2017-07-05] MEDS ORDERED: SODIUM CHLORIDE 0.9% FLUSH 10 ML FLUSH IV FLUSH PRN (23:45)
[2017-07-06 00:14] LABS: AUTOMATED NEUTROPHIL # 10.1 TH/MM3 (1.8-7.7); BASOPHIL % 0.3 % (0.0-2.0); EOSINOPHIL % 0.4 % (0.0-4.0); HEMATOCRIT 37.9 % (35.0-46.0); HEMOGLOBIN 12.7 GM/DL (11.6-15.3); LYMPH % 4.4 % (9.0-44.0); LYMPHOCYTE # 0.5 TH/MM3 (1.0-4.8); MEAN CELL VOLUME 89.6 FL (80.0-100.0); MEAN CORPUSCULAR HEMOGLOBIN 30.1 PG (27.0-34.0); MEAN CORPUSCULAR HGB CONC 33.7 % (32.0-36.0); MEAN PLATELET VOLUME 8.3 FL (7.0-11.0); MONO % 4.1 % (0.0-8.0); MONOCYTE # 0.5 TH/MM3 (0-0.9); NEUT % 90.8 % (16.0-70.0); PLATELET COUNT 361 TH/MM3 (150-450); RED BLOOD COUNT 4.23 MIL/MM3 (4.00-5.30); RED CELL DISTRIBUTION WIDTH 14.1 % (11.6-17.2); WHITE BLOOD COUNT 11.1 TH/MM3 (4.0-11.0)
[2017-07-06 00:35] LABS: ALBUMIN 2.9 GM/DL (3.4-5.0); AST (GOT) 27 U/L (15-37); BICARBONATE 26.5 MEQ/L (21.0-32.0); BLOOD UREA NITROGEN 18 MG/DL (7-18); CALCIUM 8.8 MG/DL (8.5-10.1); CHLORIDE 105 MEQ/L (98-107); CREATININE 1.02 MG/DL (0.50-1.00); GLOMERULAR FILTRATION RATE 52 ML/MIN (>89); GLUCOSE,RANDOM 146 MG/DL (74-106); SODIUM (NA) 142 MEQ/L (136-145)
[2017-07-06 00:36] LABS: ALT (GPT) 27 U/L (10-53)
[2017-07-06 00:38] LABS: ALKALINE PHOSPHATASE 125 U/L (45-117); TOTAL PROTEIN 6.8 GM/DL (6.4-8.2)
--- NOTE | 2017-07-06 01:03 | PD ---
HPI Chief Complaint: GI Complaint Time Seen by Provider: 23:41 Travel History International Travel<30 days: No Contact w/Intl Traveler<30days: No Traveled to known affect area: No History of Present Illness HPI 81-year-old female presents to the emergency department from skilled nursing for evaluation of epigastric pain is nausea and vomiting. No diarrhea. Patient states she was admitted 1 week ago for same complaint at which time she was diagnosed with pancreatitis. Patient states she felt well 8 lasagna for dinner and at 9 PM started having discomfort and vomited stomach contents approximately 5 times. No bilious emesis no hematemesis no coffee-ground emesis. Patient states her discomfort at this time is 6/10 in intensity. Patient denies any chest pain or shortness of breath or referred neck jaw back shoulder arm pain. Patient states that she is at the skilled nursing for rehab after left total knee replacement. Patient is not reporting any new lower extremity pain or swelling other than her soreness associated with her left knee post surgery but no new redness no new swelling no new warmth no drainage and no new discomfort to the knee in fact patient reports knee discomfort is diminishing over time with healing. PFSH Past Medical History Hx Anticoagulant Therapy: Yes (162MG ASA) Arthritis: Yes Autoimmune Disease: No Blood Disorders: No Cancer: Yes (L BREAST) Cardiac Catheterization: Yes Cardiovascular Problems: Yes High Cholesterol: Yes Diminished Hearing: No Gastrointestinal Disorders: Yes GERD: Yes Genitourinary: No Hypertension: Yes Implanted Vascular Access Dvce: Yes Musculoskeletal: Yes Neurologic: No Psychiatric: No Respiratory: No Radiation Therapy: Yes (FINISHED FOR L BREAST CANCER) ?: Not Past Surgical History Abdominal Surgery: Yes (KIDNEY STONES) AICD: No Cardiac Surgery: No Ear Surgery: No Endocrine Surgery: No Eye Surgery: No Genitourinary Surgery: No Gynecologic Surgery: Yes (OVARY REMOVED) Joint Replacement: Yes (L total knee) Mastectomy: Yes (L RADICAL) Oral Surgery: No Pacemaker: No Thoracic Surgery: Yes (L mastectomy) Other Surgery: Yes Social History Alcohol Use: No Tobacco Use: No Substance Use: No Allergies-Medications (Allergen,Severity, Reaction): Coded Allergies: No Known Allergies (Verified Allergy, Unknown, 06/28/17) Reported Meds & Prescriptions Reported Meds & Active Scripts Active Keflex (Cephalexin) 500 Mg Capsule 500 Mg PO Q6H 7 Days Zofran Odt (Ondansetron Odt) 4 Mg Tab 4 Mg SL Q6HR PRN Macrobid (Nitrofurantoin Monohydrate Macrocrystals) 100 Mg Capsule 100 Mg PO BID Reported Multi-Vitamin Daily (Multiple Vitamin) 1 Tab Tab 1 Tab PO DAILY [iron] 325 Mg PO DAILY Atorvastatin (Atorvastatin Calcium) 20 Mg Tab 20 Mg PO HS Aspirin DR (Aspirin) 81 Mg Tabdr 81 Mg PO DAILY Amlodipine (Amlodipine Besylate) 5 Mg Tab 5 Mg PO DAILY Review of Systems Except as stated in HPI: all other systems reviewed are Neg General / Constitutional: No: Fever, Chills HENT: No: Congestion Cardiovascular: No: Chest Pain or Discomfort Respiratory: No: Shortness of Breath Gastrointestinal: Positive: Nausea, Vomiting, Abdominal Pain, No: Hematemesis, Hematochezia, Constipation, Loss of Appetite Genitourinary: No: Urgency, Frequency, Dysuria, Flank Pain Musculoskeletal: No: Myalgias, Arthralgias Skin: No Rash Neurologic: No: Weakness, Dizziness, Syncope Psychiatric: No: Anxiety Hematologic/Lymphatic: No: Easy Bruising Physical Exam Narrative GENERAL: Well-developed well-nourished female no acute distress no respiratory distress SKIN: Warm and dry. HEAD: Normocephalic. EYES: No scleral icterus. No injection or drainage. NECK: Supple, trachea midline. No JVD or lymphadenopathy. CARDIOVASCULAR: Regular rate and rhythm without murmurs, gallops, or rubs. RESPIRATORY: Breath sounds equal bilaterally. No accessory muscle use. GASTROINTESTINAL: Abdomen soft, mild localized reproducible tenderness to the epigastric area without guarding or rebound, otherwise abdomen is nontender to palpation, nondistended. MUSCULOSKELETAL: No cyanosis, or edema. BACK: Nontender without obvious deformity. No CVA tenderness. Data Data Last Documented VS Vital Signs Date Time Temp Pulse Resp B/P (MAP) Pulse Ox O2 Delivery O2 Flow Rate FiO2 07/06/17 02:03 88 20 163/66 (98) 94 Room Air 07/05/17 23:32 98.6 Orders Orders Complete Blood Count With Diff (07/05/17 23:41) Comprehensive Metabolic Panel (07/05/17 23:41) Lipase (07/05/17 23:41) Urinalysis - C+S If Indicated (07/05/17 23:41) Iv Access Insert/Monitor (07/05/17 23:41) Ecg Monitoring (07/05/17 23:41) Oximetry (07/05/17 23:41) Sodium Chloride 0.9% Flush (Ns Flush) (07/05/17 23:45) NPO (07/05/17 23:41) Pantoprazole Inj (Protonix Inj) (07/06/17 02:00) Electrocardiogram (07/06/17 ) Troponin I (07/06/17 01:48) Urine Culture (07/06/17 01:39) Ceftriaxone Inj (Rocephin Inj) (07/06/17 02:45) Sodium Chlorid 0.9% 500 Ml Inj (Ns 500 M (07/06/17 03:15) Acetamin-Hydrocod 325-5 Mg ([place] 5-325 (07/06/17 03:15) Ed Discharge Order (07/06/17 04:04) Ondansetron Odt (Zofran Odt) (07/06/17 04:15) Labs Laboratory Tests Test 07/06/17 00:00 07/06/17 01:39 White Blood Count 11.1 TH/MM3 Red Blood Count 4.23 MIL/MM3 Hemoglobin 12.7 GM/DL Hematocrit 37.9 % Mean Corpuscular Volume 89.6 FL Mean Corpuscular Hemoglobin 30.1 PG Mean Corpuscular Hemoglobin Concent 33.7 % Red Cell Distribution Width 14.1 % Platelet Count 361 TH/MM3 Mean Platelet Volume 8.3 FL Neutrophils (%) (Auto) 90.8 % Lymphocytes (%) (Auto) 4.4 % Monocytes (%) (Auto) 4.1 % Eosinophils (%) (Auto) 0.4 % Basophils (%) (Auto) 0.3 % Neutrophils # (Auto) 10.1 TH/MM3 Lymphocytes # (Auto) 0.5 TH/MM3 Monocytes # (Auto) 0.5 TH/MM3 Eosinophils # (Auto) 0.0 TH/MM3 Basophils # (Auto) 0.0 TH/MM3 CBC Comment DIFF FINAL Differential Comment Blood Urea Nitrogen 18 MG/DL Creatinine 1.02 MG/DL Random Glucose 146 MG/DL Total Protein 6.8 GM/DL Albumin 2.9 GM/DL Calcium Level 8.8 MG/DL Alkaline Phosphatase 125 U/L Aspartate Amino Transf (AST/SGOT) 27 U/L Alanine Aminotransferase (ALT/SGPT) 27 U/L Total Bilirubin 1.0 MG/DL Sodium Level 142 MEQ/L Potassium Level 3.7 MEQ/L Chloride Level 105 MEQ/L Carbon Dioxide Level 26.5 MEQ/L Anion Gap 11 MEQ/L Estimat Glomerular Filtration Rate 52 ML/MIN Troponin I LESS THAN 0.02 NG/ML Lipase 206 U/L Urine Color YELLOW Urine Turbidity CLEAR Urine pH 7.5 Urine Specific [place] 1.014 Urine Protein TRACE mg/dL Urine Glucose (UA) NEG mg/dL Urine Ketones 15 mg/dL Urine Occult Blood NEG Urine Nitrite NEG Urine Bilirubin NEG Urine Urobilinogen 1.0 MG/DL Urine Leukocyte Esterase MOD Urine RBC 2 /hpf Urine WBC 14 /hpf Urine Squamous Epithelial Cells 3 /hpf Urine Renal Epithelial Cells <1 /hpf Urine Amorphous Sediment RARE Urine Bacteria RARE /hpf Urine Waxy Casts 3 /lpf Urine Mucus FEW /lpf Microscopic Urinalysis Comment CULTURE INDICATED MDM Medical Decision Making Medical Screen Exam Complete: Yes Emergency Medical Condition: Yes Medical Record Reviewed: Yes Interpretation(s) EKG normal sinus rhythm rate [address] elevation injury pattern or ectopy noted CBC & BMP Diagram 07/06/17 00:00 Total Protein 6.8 #, Albumin 2.9 L, Calcium Level 8.8, Alkaline Phosphatase 125 H, Aspartate Amino Transf (AST/SGOT) 27, Alanine Aminotransferase (ALT/SGPT) 27 , Total Bilirubin 1.0 Vital Signs Date Time Temp Pulse Resp B/P (MAP) Pulse Ox O2 Delivery O2 Flow Rate FiO2 07/06/17 02:03 88 20 163/66 (98) 94 Room Air 07/05/17 23:32 98.6 71 18 138/73 (94) 97 Differential Diagnosis Recurrent abdominal pain, gastritis, peptic ulcer disease, pancreatitis, biliary colic, esophageal spasm, ACS, atypical chest pain, NM, renal colic, gastroenteritis Narrative Course 81-year-old female presents to the emergency department from skilled nursing by EMS transport after vomiting stomach contents after eating dinner. Patient states pain is 6/10 intensity but tolerable. Patient isolates pain to the upper abdomen and it is reproducible to palpation. Patient states symptoms are same as last visit for pancreatitis. Patient did take pain medication at 7 PM. Patient states symptoms began around 9 PM. No chest pain no shortness of breath no referred neck jaw back shoulder arm pain or sweats. IV access obtained specimens collected and sent for resulting patient declines any requests for pain medication at this time Patient given Protonix 40 mg IV CBC is automated differential remarkable for 90% neutrophils, urinalysis shows 14 white blood cells and bacteria culture indicated patient is currently on nitrofurantoin and culture is positive for Enterobacter clinically sensitive to Cipro and cephalosporins but resistant to nitrofurantoin; patient is on nitrofurantoin as an outpatient. Troponin I is less than 0.02, not elevated patient denies chest pain; EKG is sinus rhythm no acute ST elevation injury pattern or ectopy noted Chemistries are grossly within normal range lipase is not elevated at 206; patient reports time for her pain medication for her postoperative pain. Diagnosis Primary Impression: Gastritis Additional Impression: UTI (urinary tract infection) Referrals: Primary Care Physician 1 day Patient Instructions: General Instructions Additional Instructions: Recommend clear liquid diet for next 6-12 hours advance as tolerated to bland/ brat diet over the next 24 hours and then regular diet avoiding fried and fatty foods Administer as needed Zofran 4 mg ODT every 6 hours for nausea and/or vomiting Continue chronic pain medication as prescribed as needed for postoperative knee pain may use for gastritis related pain greater than 5/10 in intensity Monitor temperature every 4 hours with thermometry take acetaminophen/Tylenol every 4 hours for fever 100.4F or greater Return to the emergency department for any concerns or change in condition Follow-up with your primary care provider call office in a.m. to schedule follow -up appointment Discontinue Macrobid antibiotics start Keflex antibiotic Med/Other Pt SpecificInfo: Prescription(s) given, Med Stopped (macrobid -- start keflex) Scripts Cephalexin (Keflex) 500 Mg Capsule 500 MG PO Q6H for Infection for 7 Days, #28 CAP 0 Refills Prov: Rachell Card MD 07/06/17 Ondansetron Odt (Zofran Odt) 4 Mg Tab 4 MG SL Q6HR Y for Nausea/Vomiting, #10 TAB 0 Refills Prov: Rachell Card MD 07/06/17 Disposition: 03 DISCHARGE TO SNF Condition: Stable Rachell Card MD July 06, 2017 01:03
[2017-07-06] MEDS ORDERED: PANTOPRAZOLE SODIUM 40 MG VIAL IV PUSH ONE (02:00)
[2017-07-06 02:03] VITALS: BP 163/66; PULSE 88; RESP 20; O2SAT 94
[2017-07-06 02:19] LABS: BILIRUBIN, URINE NEG (NEG); BLOOD, URINE NEG (NEG); GLUCOSE,URINE NEG (NEG); KETONE, URINE 15 mg/dL (NEG); NITRITE,URINE NEG (NEG); PH, URINE 7.5 (5.0-8.5); URINE COLOR YELLOW (YELLW/STRAW); URINE LEUKOCYTE ESTERASE MOD (NEG)
[2017-07-06 02:26] LABS: AMORPHOUS SEDIMENT, URINE RARE; BACTERIA, URINE RARE /hpf; MUCUS URINE FEW /lpf (OCC); RENAL EPITHELIAL CELLS <1 /hpf; SQUAMOUS EPITHELIAL CELL URINE 3 /hpf (0-5); WAXY CAST, URINE 3 /lpf
[2017-07-06] MEDS ORDERED: cefTRIAXone INJ 1,000 MG in SODIUM CHLORIDE 0.9% INJ 100 ML IV ONE (02:45)
[2017-07-06] MEDS ORDERED: ACETAMINOPHEN/HYDROcodone 325 MG/5 MG TAB PO ONE (03:15)
[2017-07-06] MEDS ORDERED: SODIUM CHLORID 0.9% 500 ML INJ 500 ML IV ONE (03:15)
[2017-07-06] MEDS ORDERED: ONDANSETRON HCL 4 MG/2 ML VIAL IV PUSH ONE (03:15)
[2017-07-06] MEDS ORDERED: CEPH-460 PO (03:15)
[2017-07-06] MEDS ORDERED: ZOFR4TAB3 SL (03:15)
[2017-07-06] MEDS ORDERED: ONDANSETRON ODT 4 MG TAB PO ONE (04:15)
[2017-07-06 07:00] VITALS: RESP 16
[2017-07-06 07:14] VITALS: BP 130/72; TEMP 98.1
--- NOTE | 2017-07-06 17:03 | EKG ---
Date Performed: 07/06/2017 Time Performed: 03:08:47 PTAGE: 81 years EKG: Sinus rhythm NORMAL ECG PREVIOUS TRACING : 04/09/2017 07.25 Since the previous tracing, no significant change noted DOCTOR: Samia Verdin Interpretating Date/Time 07/06/2017 17:02:23
== END 2017-07-06 07:17 ==
LOC: NEPC 23:28
DX: K29.70 Gastritis, unspecified, without bleeding (principal); N39.0 Urinary tract infection, site not specified; E78.00 Pure hypercholesterolemia, unspecified; I10 Essential (primary) hypertension
CPT/HCPCS: 80053; 81001; 83690; 84484; 85025; 87086; 93005; 96365; 96375; 99284; C9113; J0696; J7040

== ENCOUNTER 2018-01-01 14:51 | Observation (INO) ==
[2018-01-01] MEDS ORDERED: Famotidine PF Inj 20 MG/2 ML Vial IV.PUSH ONE (15:11)
[2018-01-01] MEDS ORDERED: Sod Chloride 0.9% Inj 1,000 ML IV.CONT SCH (15:15)
--- NOTE | 2018-01-01 15:31 | ED ---
HPI General Chief complaint: GI Bleed Stated complaint: abd pain Time Seen by Provider: 01/01/18 15:05 Source: patient and family Mode of arrival: EMS Limitations: no limitations History of Present Illness HPI Narrative: Reports eating breakfast up in air this morning with onset of nausea and vomiting and coffee-ground emesis at 1:00 today approximately 1-1/2 hours ago. Reports several episodes of vomiting. She did not eat lunch. She takes amlodipine for blood pressure and a statin for hyperlipidemia. She does take an aspirin daily. Reports a similar episode several months ago. No endoscopy at that time. MD complaint: Reports coffee ground emesis Onset (ago): hour(s) (1) Pain Consistency: constant Severity: mild Relieving factors: none Exacerbating factors: none Context: Reports history of GI bleed Associated symptoms: Reports denies other symptoms Treatments Prior to Arrival: Reports none Related Data Home Medications Medication Instructions Recorded Confirmed amlodipine 5 mg PO DAILY 01/01/18 01/01/18 aspirin [Aspirin Low Dose] 81 mg PO DAILY 01/01/18 01/01/18 atorvastatin 20 mg PO HS 01/01/18 01/01/18 Allergies Allergy/AdvReac Type Severity Reaction Status Date / Time No Known Allergies Allergy Verified 01/01/18 15:13 Review of Systems ROS: all other systems reviewed are negative PMFSH History History Provided By: Patient and Family Member Medical History Medical History Ankle fracture, right (Acute) Breast cancer, left (Acute) History of radiation therapy (Acute) Hypertension (Acute) Lymph node cancer (Acute) Pancreatitis (Acute) Surgical History Surgical History History of bilateral knee replacement (Acute) History of left oophorectomy (Acute) Social History Social History Substance History: No History of Abuse Second Hand Smoke Exposure: No Smoking Status: Never smoker How Often Do You Have a Drink Containing Alcohol: Never Recent Travel in [facility] within the Last 8 Weeks: No Recent Out of Country Travel within the Last 8 Weeks: No Exam Narrative Exam Narrative: CARDIOVASCULAR: Regular rate and rhythm without murmurs, gallops , or rubs. RESPIRATORY: Breath sounds equal bilaterally. No accessory muscle use. GASTROINTESTINAL: Abdomen soft, normal bowel sounds, non-tender, nondistended. MUSCULOSKELETAL: No cyanosis, or edema. BACK: Nontender without obvious deformity. No CVA tenderness. Course Initial Documented Vital Signs Temperature 98.2 F 01/01/18 15:07 Pulse Rate 70 01/01/18 15:07 Respiratory Rate 20 01/01/18 15:07 Blood Pressure 120/69 01/01/18 15:07 Last Documented Vital Signs Temperature 98.2 F 01/01/18 15:07 Pulse Rate 70 01/01/18 15:07 Respiratory Rate 20 01/01/18 15:07 Blood Pressure 120/69 01/01/18 15:07 Medical Decision Making MDM Narrative Medical decision making narrative: Emesis positive for blood. Hemodynamically stable. Spoke with Dr. Patel who is in agreement will admit with GI consult. Medical Screen Exam Complete: Yes Emergency Medical Condition: Yes Differential Diagnosis Differential Diagnosis: Gastric ulcer, GI bleed, duodenal ulcer Medical Records Medical records reviewed: Yes I reviewed the patient's medical records. Lab Data Lab results reviewed: Yes I reviewed the patient's lab results. Result diagrams: 01/01/18 15:25 01/01/18 15:25 Lab Results 01/01/18 01/01/18 01/01/18 Range/Units 15:25 15:25 15:25 CBC w Diff Auto diff final WBC 10.4 (4.0-11.0) th/mm3 RBC 4.43 (4.00-5.30) mil/mm3 Hgb 13.7 (11.6-15.3) gm/dL Hct 40.3 (35.0-46.0) % MCV 90.9 (80.0-100.0) fL MCH 31.0 (27.0-34.0) pg MCHC 34.1 (32.0-36.0) % RDW 14.8 (11.6-17.2) % Plt Count 195 (150-450) th/mm3 MPV 8.9 (7.0-11.0) fL Neut % (Auto) 89.1 H (16.0-70.0) % Lymph % (Auto) 6.1 L (9.0-44.0) % [place] % (Auto) 3.9 (0.0-8.0) % Eos % (Auto) 0.3 (0.0-4.0) % Baso % (Auto) 0.6 (0.0-2.0) % Neut # (Auto) 9.3 H (1.8-7.7) th/mm3 Lymph # (Auto) 0.6 L (1.0-4.8) th/mm3 [place] # (Auto) 0.4 (0.0-0.9) th/mm3 Eos # (Auto) 0.0 (0.0-0.4) th/mm3 Baso # (Auto) 0.1 (0.0-0.2) th/mm3 WBC Differential . Differential Comment . PT 10.4 (9.8-11.6) sec INR 1.0 Ratio APTT 26.1 (23.4-31.7) sec Sodium 144 (136-145) meq/L Potassium 3.4 L (3.5-5.1) meq/L Chloride 107 (98-107) meq/L Carbon Dioxide 26.0 (21.0-32.0) meq/L Anion Gap 11 (5-15) meq/L BUN 26 H (7-18) mg/dL Creatinine 0.97 (0.50-1.00) mg/dL Estimated GFR 55 L (>89) mL/min Random Glucose 158 H (74-106) mg/dL Calcium 8.5 (8.5-10.1) mg/dL Magnesium 2.3 (1.5-2.5) mg/dL Total Bilirubin 0.9 (0.2-1.0) mg/dL AST 24 (15-37) U/L ALT 23 (10-53) U/L Alkaline Phosphatase 126 H (45-117) U/L Total Protein 7.1 (6.4-8.2) g/dL Albumin 3.3 L (3.4-5.0) g/dL Lipase 255 (73-393) U/L Discharge Plan Discharge Disposition Patient Disposition: 30 Still Patient Discharge Condition Condition: Good Discharge Details Diagnosis: Hematemesis with nausea Physicians Team ED Provider: Yandel Garcia Primary Care Provider: Jameson Amezquita Rxs /Orders / Referrals /Forms Prescriptions: No Action atorvastatin 20 mg Tablet 20 mg PO HS RF: 0 amlodipine 5 mg Tablet 5 mg PO DAILY RF: 0 aspirin [Aspirin Low Dose] 81 mg Tablet,Delayed Release (Dr/Ec) 81 mg PO DAILY RF: 0 Status ED Status: With Doctor
[2018-01-01 15:36] LABS: Baso # (Auto) 0.1 th/mm3 (0.0-0.2); Baso % (Auto) 0.6 % (0.0-2.0); Eos % (Auto) 0.3 % (0.0-4.0); Hematocrit 40.3 % (35.0-46.0); Hemoglobin 13.7 gm/dL (11.6-15.3); Lymph # (Auto) 0.6 th/mm3 (1.0-4.8); Lymph % (Auto) 6.1 % (9.0-44.0); Mean Corpuscular HGB Conc 34.1 % (32.0-36.0); Mean Corpuscular Volume 90.9 fL (80.0-100.0); Mean Platelet Volume 8.9 fL (7.0-11.0); Mono # (Auto) 0.4 th/mm3 (0.0-0.9); Mono % (Auto) 3.9 % (0.0-8.0); Neut # (Auto) 9.3 th/mm3 (1.8-7.7); Neut % (Auto) 89.1 % (16.0-70.0); Platelet Count 195 th/mm3 (150-450); Red Blood Count 4.43 mil/mm3 (4.00-5.30); Red Cell Distribution Width 14.8 % (11.6-17.2); White Blood Count 10.4 th/mm3 (4.0-11.0)
[2018-01-01 15:55] LABS: Chloride 107 meq/L (98-107); Potassium 3.4 meq/L (3.5-5.1); Sodium 144 meq/L (136-145)
[2018-01-01 15:59] LABS: Albumin 3.3 g/dL (3.4-5.0); Anion Gap 11 meq/L (5-15); Calcium 8.5 mg/dL (8.5-10.1); Glucose,Random 158 mg/dL (74-106); Lipase 255 U/L (73-393); Magnesium 2.3 mg/dL (1.5-2.5)
[2018-01-01 16:00] LABS: Blood Urea Nitrogen 26 mg/dL (7-18)
[2018-01-01 16:01] LABS: Activated Partial Thrombo Time 26.1 sec (23.4-31.7); Prothrombin Time 10.4 sec (9.8-11.6)
[2018-01-01 16:02] LABS: Alanine Aminotransferase 23 U/L (10-53); Aspartate Aminotransferase 24 U/L (15-37); Glomerular Filtration Rate 55 mL/min (>89)
[2018-01-01 16:04] LABS: Total Protein 7.1 g/dL (6.4-8.2)
[2018-01-01 16:05] LABS: Alkaline Phosphatase 126 U/L (45-117)
--- NOTE | 2018-01-01 16:44 | P.HP ---
History of Present Illness Primary Care Physician: Jameson Amezquita MD Chief Complaint: Nausea, vomiting and coffee ground emesis History of Present Illness: This is an 82-year-old female patient with a known medical history of hypertension and hyperlipidemia who presented to the ED with complaints of nausea, coffee-ground emesis x 1 day. Patient states that she went to [place] today and shortly after eating breakfast she developed nausea and vomiting with coffee-ground emesis. She denies any black or bloody stools. Denies any recent fever, chills, headache, abdominal pain, diarrhea. Patient underwent a right knee replacement [address] Livingston. It should also be noted that patient underwent a left knee surgery in June of this year as well and shortly after developed nausea and vomiting. Patient's last colonoscopy was 5 years ago which was reportedly negative. Does admit to taking a daily aspirin. Denies any tobacco use. PCP is Dr. Amezquita, last seen 3 weeks ago without any new changes to her medications. - Diagnosis (1) GI bleed Review of Systems All other systems reviewed negative except as stated in HPI PMFSH - History History Provided By: Patient, Family Member - Medical History Medical History: Medical History (Last Reviewed 01/01/18 @ 16:40 by Denise Pennington) Ankle fracture, right Breast cancer, left History of radiation therapy Hypertension Lymph node cancer Pancreatitis - Surgical History Surgical History: Surgical History (Last Reviewed 01/01/18 @ 16:40 by Denise Pennington) History of bilateral knee replacement History of left oophorectomy - Family History Family History: Family History (Last Updated 01/01/18 @ 16:40 by Denise Pennington) Other Family history non-contributory - Social History I have reviewed the patient's Social History: Yes - Tobacco History Second Hand Smoke Exposure: No Smoking Status: Never smoker - Alcohol History How Often Do You Have a Drink Containing Alcohol: Never - Substance Use History Substance History: No History of Abuse - Travel History Recent Travel in the [place] Within the Last 8 Weeks: No Recent Travel Out of the Country Within the Last 8 Weeks: No - Immunization History Tetanus Immunization: Unsure Medications and Allergies Active Medications: Active Medications Acetaminophen (Tylenol) 650 mg PO Q4H PRN PRN Reason: Temp > 100.4 Al Hydroxide/Mg Hydroxide (Milk Of Magnesia Liq) 30 ml PO Q12H PRN PRN Reason: Mild Constipation Bisacodyl (Dulcolax Supp) 10 mg RECTAL DAILY PRN PRN Reason: SEVERE CONSITIPATION Sodium Chloride (Ns Inj) 1,000 mls @ 125 mls/hr IV.CONT .Q8H [facility] Stop: 01/01/18 23:14 Last Admin: 01/01/18 15:18 Dose: 125 mls/hr Sodium Chloride (Ns Inj) 1,000 mls @ 100 mls/hr IV.CONT .Q10H [facility] Lactulose (Lactulose Liq) 30 ml PO DAILY PRN PRN Reason: SEVERE CONSITIPATION Ondansetron HCl (Zofran Inj) 4 mg IV.PUSH Q6H PRN PRN Reason: NAUSEA OR VOMITING Pantoprazole Sodium (Protonix Inj) 40 mg IV.PUSH Q12H [facility] Sennosides (Senokot) 17.2 mg PO Q12H PRN PRN Reason: Moderate Constipation Sodium Chloride (Ns Flush) 2 ml IV.FLUSH PRN PRN PRN Reason: FLUSH AFTER USING IV ACCESS Allergies Allergy/AdvReac Type Severity Reaction Status Date / Time No Known Allergies Allergy Verified 01/01/18 15:13 Home Medications Medication Instructions Recorded Confirmed Type amlodipine 5 mg PO DAILY 01/01/18 01/01/18 History aspirin [Aspirin Low Dose] 81 mg PO DAILY 01/01/18 01/01/18 History atorvastatin 20 mg PO HS 01/01/18 01/01/18 History Exam Vital signs: Vital Signs 01/01/18 15:07 Temperature 98.2 F Pulse Rate 70 Respiratory Rate 20 Blood Pressure 120/69 Intake & Output 12/31/17 01/01/18 01/01/18 18:59 06:59 18:59 Weight 78 kg Narrative: GENERAL: Well-developed, well-nourished patient in [facility]. SKIN: Warm and dry. No rash. HEAD: Normocephalic. Atraumatic. EYES: Pupils equal and round. No scleral icterus. No injection or drainage. ENT: No nasal bleeding or discharge. Mucous membranes pink and moist. NECK: Supple. Trachea midline. CARDIOVASCULAR: Regular rate and rhythm. S1, S2 noted. No murmur appreciated. RESPIRATORY: No accessory muscle use. Clear to auscultation. Breath sounds equal bilaterally. GASTROINTESTINAL: Abdomen soft, non-tender, nondistended. Normoactive bowel sounds x4. MUSCULOSKELETAL: No obvious deformities. Extremities without clubbing, cyanosis , or edema. Bilateral knee scars noted, healed. NEUROLOGICAL: Awake and alert. No obvious cranial nerve deficits. Motor grossly within normal limits. 5/5 muscle strength in bilateral upper and lower extremities. Normal speech. PSYCHIATRIC: Appropriate mood and affect; insight and judgment normal. Results - Labs CBC & Chem 7: 01/01/18 15:25 01/01/18 15:25 Labs: Laboratory Results - last 24 hr 01/01/18 01/01/18 01/01/18 15:25 15:25 15:25 CBC w Diff Auto diff final WBC 10.4 RBC 4.43 Hgb 13.7 Hct 40.3 MCV 90.9 MCH 31.0 MCHC 34.1 RDW 14.8 Plt Count 195 MPV 8.9 Neut % (Auto) 89.1 H Lymph % (Auto) 6.1 L [place] % (Auto) 3.9 Eos % (Auto) 0.3 Baso % (Auto) 0.6 Neut # (Auto) 9.3 H Lymph # (Auto) 0.6 L [place] # (Auto) 0.4 Eos # (Auto) 0.0 Baso # (Auto) 0.1 WBC Differential . Differential Comment . PT 10.4 INR 1.0 APTT 26.1 Sodium 144 Potassium 3.4 L Chloride 107 Carbon Dioxide 26.0 Anion Gap 11 BUN 26 H Creatinine 0.97 Estimated GFR 55 L Random Glucose 158 H Calcium 8.5 Magnesium 2.3 Total Bilirubin 0.9 AST 24 ALT 23 Alkaline Phosphatase 126 H Total Protein 7.1 Albumin 3.3 L Lipase 255 Caprini VTE Risk Assessment Caprini VTE Risk Assessment: Moderate/High Risk (score >= 2) Caprini Risk Assessment Model: Point Value = 1 Point Value = 2 Point Value = 3 Point Value = 5 Age 41-60 Minor surgery BMI > 25 kg/m2 Swollen legs Varicose veins or History of unexplained or recurrent spontaneous Oral contraceptives or hormone replacement Sepsis (< 1 month) Serious lung disease, including pneumonia (< 1 month) Abnormal pulmonary function Acute myocardial infarction Congestive heart failure (< 1 month) History of inflammatory bowel disease Medical patient at bed rest Age 61-74 Arthroscopic surgery Major open surgery (> 45 min) Laparoscopic surgery (> 45 min) Malignancy Confined to bed (> 72 hours) Immobilizing plaster cast Central venous access Age >= 75 History of VTE Family history of VTE Factor V Leiden Prothrombin [id number] Lupus anticoagulant Anticardiolipin antibodies Elevated serum homocysteine Heparin-induced thrombocytopenia Other congenital or acquired thrombophilia Stroke (< 1 month) Elective arthroplasty Hip, pelvis, or leg fracture Acute spinal cord injury (< 1 month) Prophylaxis Regimen: Total Risk Factor Score Risk Level Prophylaxis Regimen 0-1 Low Early ambulation 2 Moderate Order ONE of the following: *Sequential Compression Device (SCD) *Heparin 5000 units SQ BID 3-4 Higher Order ONE of the following medications: *Heparin 5000 units SQ TID *Enoxaparin/Lovenox 40 mg SQ daily (WT < 150 kg, CrCl > 30 mL/min) *Enoxaparin/Lovenox 30 mg SQ daily (WT < 150 kg, CrCl > 10-29 mL/min) *Enoxaparin/Lovenox 30 mg SQ BID (WT < 150 kg, CrCl > 30 mL/min) AND/OR *Sequential Compression Device (SCD) 5 or more Highest Order ONE of the following medications: *Heparin 5000 units SQ TID (Preferred with Epidurals) *Enoxaparin/Lovenox 40 mg SQ daily (WT < 150 kg, CrCl > 30 mL/min) *Enoxaparin/Lovenox 30 mg SQ daily (WT < 150 kg, CrCl > 10-29 mL/min) *Enoxaparin/Lovenox 30 mg SQ BID (WT < 150 kg, CrCl > 30 mL/min) AND *Sequential Compression Device (SCD) Assessment and Plan - Assessment (1) GI bleed Code(s): K92.2 - Gastrointestinal hemorrhage, unspecified Status: Acute - Plan This is an 82-year-old female patient with: GI bleed Nausea and vomiting, coffee-ground emesis -Patient complaint of 1-day history of nausea and coffee-ground emesis. -Hemoglobin 13.7/Hematocrit 40.3. Trend H&H q6h. Hemoccult stool positive. -Consult placed to gastroenterology. Spoke to GI who requests patient to receive Golytely prep for possible EGD/colonoscopy tomorrow. -Monitor for any active bleeding. Give Protonix 40 mg IV BID. Zofran as needed for nausea. -Ensure hydration, continue IVF. Clear liquid for now. NPO after midnight. -Awaiting abdominal/pelvis CT. Follow. -Supportive care. Hypertension, chronic: Continue home amlodipine. Monitor for hypotension. Monitor BP trends. Hyperlipidemia, chronic: Continue home statin. DVT prophylaxis: SCDs. Hold chemical prophylaxis per GI bleed.
[2018-01-01] MEDS: Sod Chloride 0.9% Inj 1,000 ML IV.CONT SCH ×2 (16:58→23:55)
[2018-01-01] MEDS ORDERED: Bisacodyl 10 MG Supp RECTAL PRN (17:00)
[2018-01-01] MEDS: Acetaminophen 325 MG Tablet PO PRN (17:02)
[2018-01-01] MEDS: Pantoprazole Inj 40 MG Vial IV.PUSH SCH (17:10)
--- NOTE | 2018-01-01 17:11 | CT ---
EXAM DATE: 01/01/2018 4:57 PM EST AGE/SEX: 82 years / Female INDICATIONS: Nausea and Vomiting CLINICAL DATA: This is the patient's initial encounter. Patient reports that signs and symptoms have been present for 1 day and indicates a pain score of 10/10. MEDICAL/SURGICAL HISTORY: Carcinoma, breast. Hypertension. Pancreatitis. . Left Oophorectomy ORAL CONTRAST: No oral contrast ingested. RADIATION DOSE: 13.02 CTDI (mGy) COMPARISON: [facility], CT ABDOMEN & PELVIS W CONTRAST, 06/28/2017. [facility], US ABDOMEN - LIVER, 8. . TECHNIQUE: Multiple contiguous axial images were obtained through the abdomen and pelvis following b olus infusion of 96ML ml Omnipaque 350 (iohexol) nonionic water-soluble contrast as a single exam d ose. No oral contrast ingested. Using automated exposure control and adjustment of the mA and/or kV according to patient size, radiation dose was kept as low as reasonably achievable to obtain optimal diagnostic quality images. DICOM format image data is available electronically for review and compar gurjit. FINDINGS: Lower Lungs: The visualized lower lungs are clear. Liver: The liver has a homogeneous density without space-occupying lesion. There is no dilation of th e biliary tree. Spleen: There is a rim-calcified lesion in the region of the splenic hilum measuring 2.6 cm consisten t with possible splenic artery aneurysm. Homogeneous density without enlargement. Pancreas: Mild peripancreatic streakiness is noted consistent with possible mild pancreatitis. Corre lation with amylase and lipase values is suggested. Kidneys: There is marked atrophy and scarring of the left kidney. Multiple calcified nonobstructing bilateral renal calculi are noted. The largest calculus on the right measures 5 mm. The largest calcu marito on the left measures 6 mm. No hydronephrosis is noted. No solid mass is noted. Adrenal Glands: Unremarkable. Aorta: The aorta and proximal iliac vessels are grossly unremarkable without aneurysmal dilation. Bowel/Mesentery: A large hiatal hernia containing the majority of the stomach is again noted. Stable gastric volvulus is noted. Uncomplicated colonic diverticulosis is noted. Abdominal Wall: Intact. Retroperitoneum: No evidence of adenopathy in the retrocrural, para-aortic, or deep pelvic regions. Bladder: Contours are smooth. Reproductive Organs: There is thickening of the endometrium which is abnormal in a patient this age. Clinical correlation is recommended to rule out postmenopausal bleeding which would suggest endometr ial carcinoma in a patient this age. Inguinal: The inguinal region is unremarkable without evidence of adenopathy. Bony Structures: There is grade I anterolisthesis of L4 in relation to L5. Degenerative changes and scoliosis of the thoracolumbar spine are noted. CONCLUSION: 1. Mild peripancreatic streakiness is noted consistent with possible mild pancreatitis. Correlation with amylase and lipase values is suggested. 2. Large hiatal hernia containing the majority of the stomach. 3. Stable gastric volvulus. 4. Uncomplicated colonic diverticulosis is noted. 5. Thickening of the endometrium which is abnormal in a patient this age. Clinical correlation is re commended to rule out postmenopausal bleeding which would suggest endometrial carcinoma in a patient this age. 6. Grade I anterolisthesis of L4 in relation to L5. 7. Degenerative changes and scoliosis of the thoracolumbar spine. 8. Marked atrophy and scarring of the left kidney. 9. Multiple calcified nonobstructing bilateral renal calculi. 10. Rim-calcified lesion in the region of the splenic hilum measuring 2.6 cm consistent with possib le splenic artery aneurysm. Electronically signed by: Stevie Trujillo MD 01/01/2018 5:10 PM EST
[2018-01-01] MEDS ORDERED: PEG 3350/E-Lyte Soln 4000 ML Bottle PO ONE (18:00)
[2018-01-01 18:39] LABS: Bilirubin,Urine Negative (Negative); Clarity,Urine Clear (Clear); Color,Urine Yellow (Yellw/Straw); Glucose,Urine (UA) Negative (Negative); Leukocyte Esterase,Urine Small (Negative); Nitrite,Urine Negative (Negative); PH,Urine 6.5 (5.0-8.5); Urobilinogen,Urine 0.2 mg/dL (Less than 2)
[2018-01-01 18:45] LABS: Amorphous Sediment,Urine Moderate /hpf; Squamous Epithelial Cell,Urine 0-5 /hpf (0-5); WBC,Urine 0-5 /hpf (0-5)
[2018-01-01 18:46] LABS: Bacteria,Urine Few /hpf
[2018-01-02] MEDS: Sod Chloride 0.9% Inj 1,000 ML IV.CONT SCH ×3 (04:17→17:04)
[2018-01-02] MEDS: Pantoprazole Inj 40 MG Vial IV.PUSH SCH ×2 (04:19→16:12)
[2018-01-02] MEDS: Acetaminophen 325 MG Tablet PO PRN (04:19)
[2018-01-02 07:15] LABS: Potassium 3.4 meq/L (3.5-5.1)
[2018-01-02 07:18] LABS: Carbon Dioxide 25.1 meq/L (21.0-32.0)
[2018-01-02 07:20] LABS: Baso # (Auto) 0.1 th/mm3 (0.0-0.2); Baso % (Auto) 0.8 % (0.0-2.0); Eos # (Auto) 0.1 th/mm3 (0.0-0.4); Eos % (Auto) 1.2 % (0.0-4.0); Hematocrit 35.6 % (35.0-46.0); Hemoglobin 11.8 gm/dL (11.6-15.3); Lymph # (Auto) 1.2 th/mm3 (1.0-4.8); Lymph % (Auto) 17.4 % (9.0-44.0); Mean Corpuscular HGB Conc 33.1 % (32.0-36.0); Mean Corpuscular Hemoglobin 30.5 pg (27.0-34.0); Mean Corpuscular Volume 92.3 fL (80.0-100.0); Mean Platelet Volume 9.9 fL (7.0-11.0); Mono # (Auto) 0.6 th/mm3 (0.0-0.9); Neut # (Auto) 4.9 th/mm3 (1.8-7.7); Neut % (Auto) 71.6 % (16.0-70.0); Platelet Count 150 th/mm3 (150-450); Red Blood Count 3.86 mil/mm3 (4.00-5.30); Red Cell Distribution Width 15.2 % (11.6-17.2); White Blood Count 6.9 th/mm3 (4.0-11.0)
[2018-01-02] MEDS: amLODIPine 5 MG Tablet PO SCH (08:48)
--- NOTE | 2018-01-02 09:21 | P.PNIM ---
Subjective Interval history: Follow-up GI bleed, nausea and vomiting. Patient seen and examined, lying in bed comfortably no apparent distress. Complaints of knee pain overnight, given pain medication with good control. Vital signs stable. Afebrile. Awaiting plan from GI, possible colonoscopy and EGD today. Physical Exam Vital signs: Vital Signs 01/01/18 15:07 01/01/18 16:59 01/01/18 17:32 Temperature 98.2 F Pulse Rate 70 73 Respiratory Rate 20 18 18 Blood Pressure 120/69 155/80 H Pulse Oximetry 95 01/01/18 20:00 01/02/18 00:00 01/02/18 08:00 Temperature 98.3 F 98.7 F 96.8 F L Pulse Rate 67 79 65 Respiratory Rate 19 19 16 Blood Pressure 126/62 114/65 138/70 Pulse Oximetry 94 L 94 L 95 Intake & Output 01/01/18 01/02/18 01/02/18 18:59 06:59 18:59 Intake Total 300 / 300 925 / 925 1000 / 1000 Output Total 725 / 725 Balance -425 / -425 925 / 925 1000 / 1000 Weight 75.6 kg 78 kg Intake: IV 200 / 200 925 / 925 1000 / 1000 NS Inj 1,000 ML @ 100 mls/hr IV 200 / 200 925 / 925 1000 / 1000 .CONT .Q10H [facility] Rx#:[id number] Oral 100 / 100 Output: Urine 325 / 325 Emesis 400 / 400 Other: # Voids 4 Date of Last Bowel Movement 01/01/18 01/01/18 # Bowel Movements 2 # Emeses 3 Weight On Admission 78 kg Narrative: GENERAL: Well-developed, well-nourished patient in [facility]. SKIN: Warm and dry. No rash. HEAD: Normocephalic. Atraumatic. EYES: Pupils equal and round. No scleral icterus. No injection or drainage. ENT: No nasal bleeding or discharge. Mucous membranes pink and moist. NECK: Supple. Trachea midline. CARDIOVASCULAR: Regular rate and rhythm. S1, S2 noted. No murmur appreciated. RESPIRATORY: No accessory muscle use. Clear to auscultation. Breath sounds equal bilaterally. GASTROINTESTINAL: Abdomen soft, non-tender, nondistended. Normoactive bowel sounds x4. MUSCULOSKELETAL: No obvious deformities. Extremities without clubbing, cyanosis , or edema. Bilateral knee scars noted, healed. NEUROLOGICAL: Awake and alert. No obvious cranial nerve deficits. Motor grossly within normal limits. 5/5 muscle strength in bilateral upper and lower extremities. Normal speech. PSYCHIATRIC: Appropriate mood and affect; insight and judgment normal. Results - Labs CBC & Chem 7: 01/02/18 06:10 01/02/18 06:10 Laboratory Results - last 24 hr 01/01/18 01/01/18 01/01/18 15:25 15:25 15:25 CBC w Diff Auto diff final WBC 10.4 RBC 4.43 Hgb 13.7 Hct 40.3 MCV 90.9 MCH 31.0 MCHC 34.1 RDW 14.8 Plt Count 195 MPV 8.9 Neut % (Auto) 89.1 H Lymph % (Auto) 6.1 L [place] % (Auto) 3.9 Eos % (Auto) 0.3 Baso % (Auto) 0.6 Neut # (Auto) 9.3 H Lymph # (Auto) 0.6 L [place] # (Auto) 0.4 Eos # (Auto) 0.0 Baso # (Auto) 0.1 WBC Differential . Differential Comment . PT 10.4 INR 1.0 APTT 26.1 Sodium 144 Potassium 3.4 L Chloride 107 Carbon Dioxide 26.0 Anion Gap 11 BUN 26 H Creatinine 0.97 Estimated GFR 55 L Random Glucose 158 H Calcium 8.5 Magnesium 2.3 Total Bilirubin 0.9 AST 24 ALT 23 Alkaline Phosphatase 126 H Total Protein 7.1 Albumin 3.3 L Lipase 255 Urine Color Urine Clarity Urine pH Ur Specific [place] Urine Protein Urine Glucose (UA) Urine Ketones Urine Occult Blood Urine Nitrate Urine Bilirubin Urine Urobilinogen Ur Leukocyte Esterase Urine WBC Urine WBC Clumps Ur Squamous Epith Cells Amorphous Sediment Urine Bacteria Micro UA Comment Ur Microscopic Review Urine Culture Comments Blood Type Antibody Screen 01/01/18 01/01/18 01/02/18 15:25 18:20 06:10 CBC w Diff Auto diff final WBC 6.9 RBC 3.86 L Hgb 11.8 Hct 35.6 MCV 92.3 MCH 30.5 MCHC 33.1 RDW 15.2 Plt Count 150 MPV 9.9 Neut % (Auto) 71.6 H Lymph % (Auto) 17.4 [place] % (Auto) 9.0 H Eos % (Auto) 1.2 Baso % (Auto) 0.8 Neut # (Auto) 4.9 Lymph # (Auto) 1.2 [place] # (Auto) 0.6 Eos # (Auto) 0.1 Baso # (Auto) 0.1 WBC Differential . Differential Comment . PT INR APTT Sodium Potassium Chloride Carbon Dioxide Anion Gap BUN Creatinine Estimated GFR Random Glucose Calcium Magnesium Total Bilirubin AST ALT Alkaline Phosphatase Total Protein Albumin Lipase Urine Color Yellow Urine Clarity Clear Urine pH 6.5 Ur Specific [place] 1.010 Urine Protein Negative Urine Glucose (UA) Negative Urine Ketones Trace H Urine Occult Blood Negative Urine Nitrate Negative Urine Bilirubin Negative Urine Urobilinogen 0.2 Ur Leukocyte Esterase Small H Urine WBC 0-5 Urine WBC Clumps Rare H Ur Squamous Epith Cells 0-5 Amorphous Sediment Moderate H Urine Bacteria Few H Micro UA Comment Culture indicated Ur Microscopic Review Microscopic reviewed Urine Culture Comments Culture indicated Blood Type O Negative Antibody Screen Negative 01/02/18 06:10 CBC w Diff WBC RBC Hgb Hct MCV MCH MCHC RDW Plt Count MPV Neut % (Auto) Lymph % (Auto) [place] % (Auto) Eos % (Auto) Baso % (Auto) Neut # (Auto) Lymph # (Auto) [place] # (Auto) Eos # (Auto) Baso # (Auto) WBC Differential Differential Comment PT INR APTT Sodium 147 H Potassium 3.4 L Chloride 112 H Carbon Dioxide 25.1 Anion Gap 10 BUN 20 H Creatinine 0.84 Estimated GFR 65 L Random Glucose 98 Calcium 8.0 L Magnesium Total Bilirubin AST ALT Alkaline Phosphatase Total Protein Albumin Lipase Urine Color Urine Clarity Urine pH Ur Specific [place] Urine Protein Urine Glucose (UA) Urine Ketones Urine Occult Blood Urine Nitrate Urine Bilirubin Urine Urobilinogen Ur Leukocyte Esterase Urine WBC Urine WBC Clumps Ur Squamous Epith Cells Amorphous Sediment Urine Bacteria Micro UA Comment Ur Microscopic Review Urine Culture Comments Blood Type Antibody Screen - Imaging Impressions Abdomen/Pelvis CT 01/01/18 15:11 CONCLUSION: 1. Mild peripancreatic streakiness is noted consistent with possible mild pancreatitis. Correlation with amylase and lipase values is suggested. 2. Large hiatal hernia containing the majority of the stomach. 3. Stable gastric volvulus. 4. Uncomplicated colonic diverticulosis is noted. 5. Thickening of the endometrium which is abnormal in a patient this age. Clinical correlation is recommended to rule out postmenopausal bleeding which would suggest endometrial carcinoma in a patient this age. 6. Grade I anterolisthesis of L4 in relation to L5. 7. Degenerative changes and scoliosis of the thoracolumbar spine. 8. Marked atrophy and scarring of the left kidney. 9. Multiple calcified nonobstructing bilateral renal calculi. 10. Rim-calcified lesion in the region of the splenic hilum measuring 2.6 cm consistent with possible splenic artery aneurysm. Assessment and Plan - Assessment (1) GI bleed Code(s): K92.2 - Gastrointestinal hemorrhage, unspecified Status: Acute - Plan This is an 82-year-old female patient with: GI bleed Nausea and vomiting, coffee-ground emesis. resolved. -Patient complaint of 1-day history of nausea and coffee-ground emesis. -Hemoglobin 13.7/Hematocrit 40.3. Trend H&H q6h. Hemoccult stool positive. -Consult placed to gastroenterology. Spoke to GI, appreciate input and recommendations. -Patient rec'd Golytely prep for possible EGD/colonoscopy today. -Monitor for any active bleeding, none overnight. Continue Protonix 40 mg IV BID. Zofran as needed for nausea. -Ensure hydration, continue IVF. NPO. -Abdominal/pelvis CT showing large hiatal hernia, diverticulosis, and a possible splenic artery aneurysm measuring 2.6cm. Await GI recommendations. -Supportive care. Hypertension, chronic: Continue home amlodipine. Monitor for hypotension. Monitor BP trends. Hyperlipidemia, chronic: Continue home statin. DVT prophylaxis: SCDs. Hold chemical prophylaxis per GI bleed. Discharge Planning: Awaiting EGD/colonoscopy, final recs from GI, and clinical improvement.
--- NOTE | 2018-01-02 12:12 | P.CONGI ---
History of Present Illness Consult date: 01/02/18 Chief complaint: Gi bleed History of Present Illness: Mrs. Gilbert is a 82 year old female who presents to the ED for nausea, vomiting, coffee-ground emesis, GI bleed and abdominal pain. She stated that last am she ate a ham nad cheese souffle from [employer] and then started vomiting multiple times starting at 1:30 pm yesterday. She states that her vomit was dark red and that she did not feel relief after vomiting. She states that she has stabbing epigastric pain that is a 9-10/10 this morning. She was given pain medications that relieved the pain. Patient denies any diarrhea, no melena not hematochezia, no fevers, no lightheadedness or syncope, no dysphagia but does promote acid reflux. She states that she had two similar episodes in June of this year that in which a CT scan was done in [place] showing a hiatal hernia, gastric volvulus, a splenic aneurysm of 2.6 cm, and diverticulosis. No treatment was given at the time. Labs reveal no anemia, AST and ALT within the normal range, elevated Alk phos of 126, hypernatremia of 147, hypokalemia of 3.4 Assessment: Mrs. Savage is a well appearing 82 year old woman that appears younger that her stated age, with a history of hiatal hernia, gastric volvulus, splenic aneurysm and diverticulosis that comes in for a third episode of abdominal pain, hematemesis, vomiting and nausea. Differential: 1. Gastric/peptic ulcer -EGD. treatment with PPI 2. Esophagitis 3. Lety Natan Tear due to vomiting -EGD, 4. Gastric Ischemia due to gastric volvulus -Potential surgery/IR consult 4. AVM -EGD and cauterize 5. Dieulafloy lesion -EGD <Rylie Quick - Last Filed: 01/02/18 12:26> Chief complaint: Gi bleed <Rossi Blevins - Last Filed: 01/02/18 16:15> PMFSH - History History Provided By: Patient, Family Member - Medical History Medical History: Medical History (Last Reviewed 01/02/18 @ 08:57 by [place]) Ankle fracture, right Breast cancer, left History of radiation therapy Hypertension Lymph node cancer Pancreatitis - Surgical History Surgical History: Surgical History (Last Reviewed 01/02/18 @ 08:57 by [place]) History of bilateral knee replacement History of left oophorectomy - Family History Family History: Family History (Last Updated 01/01/18 @ 16:40 by Denise Pennington) Other Family history non-contributory - Tobacco History Second Hand Smoke Exposure: No Tobacco Use In Past 30 Days: No Smoking Status: Never smoker - Alcohol History How Often Do You Have a Drink Containing Alcohol: Never - Substance Use History Substance History: No History of Abuse - Travel History Recent Travel in the [place] Within the Last 8 Weeks: No Recent Travel Out of the Country Within the Last 8 Weeks: No - Immunization History Tetanus Immunization: Unsure <Rylie Quick - Last Filed: 01/02/18 12:26> - Medical History Medical History: Medical History (Last Reviewed 01/02/18 @ 08:57 by [place]) Ankle fracture, right Breast cancer, left History of radiation therapy Hypertension Lymph node cancer Pancreatitis - Surgical History Surgical History: Surgical History (Last Reviewed 01/02/18 @ 08:57 by [place]) History of bilateral knee replacement History of left oophorectomy - Family History Family History: Family History (Last Updated 01/01/18 @ 16:40 by Denise Pennington) Other Family history non-contributory <Rossi Blevins - Last Filed: 01/02/18 16:15> Medications and Allergies Active Medications: Active Medications Acetaminophen (Tylenol) 650 mg PO Q4H PRN PRN Reason: HEADACHE OR TEMP > 101 F Last Admin: 01/02/18 04:19 Dose: 650 mg Al Hydroxide/Mg Hydroxide (Milk Of Alisha Literrance) 30 ml PO Q12H PRN PRN Reason: Mild Constipation Amlodipine Besylate (Norvasc) 5 mg PO DAILY [facility] Last Admin: 01/02/18 08:48 Dose: 5 mg Atorvastatin Calcium (Lipitor) 20 mg PO HS [facility] Last Admin: 01/01/18 20:40 Dose: 20 mg Bisacodyl (Dulcolax Supp) 10 mg RECTAL DAILY PRN PRN Reason: SEVERE CONSITIPATION Sodium Chloride (Ns Inj) 1,000 mls @ 100 mls/hr IV.CONT .Q10H [facility] Last Admin: 01/02/18 08:49 Dose: 100 mls/hr Lactulose (Lactulose Liq) 30 ml PO DAILY PRN PRN Reason: SEVERE CONSITIPATION Ondansetron HCl (Zofran Inj) 4 mg IV.PUSH Q6H PRN PRN Reason: NAUSEA OR VOMITING Oxycodone/Acetaminophen (Percocet 5/325 Mg) 1 tab PO Q6H PRN PRN Reason: PAIN SCALE 1 TO 10 Pantoprazole Sodium (Protonix Inj) 40 mg IV.PUSH Q12H [facility] Last Admin: 01/02/18 04:19 Dose: 40 mg Sennosides (Senokot) 17.2 mg PO Q12H PRN PRN Reason: Moderate Constipation Sodium Chloride (Ns Flush) 2 ml IV.FLUSH PRN PRN PRN Reason: FLUSH AFTER USING IV ACCESS Last Admin: 01/02/18 04:19 Dose: 2 ml <Rylie Quick - Last Filed: 01/02/18 12:26> Active Medications: Active Medications Acetaminophen (Tylenol) 650 mg PO Q4H PRN PRN Reason: HEADACHE OR TEMP > 101 F Last Admin: 01/02/18 04:19 Dose: 650 mg Al Hydroxide/Mg Hydroxide (Milk Of Magnesia Liq) 30 ml PO Q12H PRN PRN Reason: Mild Constipation Amlodipine Besylate (Norvasc) 5 mg PO DAILY [facility] Last Admin: 01/02/18 08:48 Dose: 5 mg Atorvastatin Calcium (Lipitor) 20 mg PO HS [facility] Last Admin: 01/01/18 20:40 Dose: 20 mg Bisacodyl (Dulcolax Supp) 10 mg RECTAL DAILY PRN PRN Reason: SEVERE CONSITIPATION Sodium Chloride (Ns Inj) 1,000 mls @ 100 mls/hr IV.CONT .Q10H [facility] Last Infusion: 01/02/18 12:49 Dose: 100 mls/hr Lactulose (Lactulose Liq) 30 ml PO DAILY PRN PRN Reason: SEVERE CONSITIPATION Ondansetron HCl (Zofran Inj) 4 mg IV.PUSH Q6H PRN PRN Reason: NAUSEA OR VOMITING Oxycodone/Acetaminophen (Percocet 5/325 Mg) 1 tab PO Q6H PRN PRN Reason: PAIN SCALE 1 TO 10 Pantoprazole Sodium (Protonix Inj) 40 mg IV.PUSH Q12H [facility] Last Admin: 01/02/18 04:19 Dose: 40 mg Sennosides (Senokot) 17.2 mg PO Q12H PRN PRN Reason: Moderate Constipation Sodium Chloride (Ns Flush) 2 ml IV.FLUSH PRN PRN PRN Reason: FLUSH AFTER USING IV ACCESS Last Admin: 01/02/18 04:19 Dose: 2 ml <GenAmmar - Last Filed: 01/02/18 16:15> Allergies Allergy/AdvReac Type Severity Reaction Status Date / Time No Known Allergies Allergy Verified 01/01/18 15:13 Home Medications Medication Instructions Recorded Confirmed Type amlodipine 5 mg PO DAILY 01/01/18 01/01/18 History aspirin [Aspirin Low Dose] 81 mg PO DAILY 01/01/18 01/01/18 History atorvastatin 20 mg PO HS 01/01/18 01/01/18 History Exam Vital signs: Vital Signs 01/01/18 15:07 01/01/18 16:59 01/01/18 17:32 Temperature 98.2 F Pulse Rate 70 73 Respiratory Rate 20 18 18 Blood Pressure 120/69 155/80 H Pulse Oximetry 95 01/01/18 20:00 01/02/18 00:00 01/02/18 08:00 Temperature 98.3 F 98.7 F 96.8 F L Pulse Rate 67 79 65 Respiratory Rate 19 19 16 Blood Pressure 126/62 114/65 138/70 Pulse Oximetry 94 L 94 L 95 Intake & Output 01/01/18 01/02/18 01/02/18 18:59 06:59 18:59 Intake Total 300 / 300 925 / 925 1000 / 1000 Output Total 725 / 725 Balance -425 / -425 925 / 925 1000 / 1000 Weight 75.6 kg 78 kg Intake: IV 200 / 200 925 / 925 1000 / 1000 NS Inj 1,000 ML @ 100 mls/hr IV 200 / 200 925 / 925 1000 / 1000 .CONT .Q10H [facility] Rx#:[id number] Oral 100 / 100 Output: Urine 325 / 325 Emesis 400 / 400 Other: # Voids 4 Date of Last Bowel Movement 01/01/18 01/01/18 01/02/18 # Bowel Movements 2 # Emeses 3 Weight On Admission 78 kg - Constitutional no acute distress, average body habitus, cooperative - Routine HEENT Exam Head: Present: normocephalic, atraumatic Eye: Present: EOMI, PERRL, conjunctivae pink ENT: Present: mucous membranes moist, oropharynx clear Comments: dentition poor, missing teeth - Routine Respiratory Exam Present: wheezes, crackles (no wheezes no crackles, lungs clear) - Routine Cardiovascular Exam Present: RRR, S1, S2 - Routine Abdominal Exam Present: soft, normoactive bowel sounds, organomegaly (no organomegaly) Comments: mid epigastric pain - Routine Skin Exam Present: intact - Routine Neurological Exam Present: alert, oriented X3, normal speech <Rylie Quick - Last Filed: 01/02/18 12:26> Vital signs: Vital Signs 01/01/18 16:59 01/01/18 17:32 01/01/18 20:00 Temperature 98.3 F Pulse Rate 73 67 Respiratory Rate 18 18 19 Blood Pressure 155/80 H 126/62 Pulse Oximetry 95 94 L 01/02/18 00:00 01/02/18 08:00 01/02/18 12:00 Temperature 98.7 F 96.8 F L 97.2 F L Pulse Rate 79 65 55 L Respiratory Rate 19 16 17 Blood Pressure 114/65 138/70 131/60 Pulse Oximetry 94 L 95 96 Intake & Output 01/01/18 01/02/18 01/02/18 18:59 06:59 18:59 Intake Total 300 / 300 925 / 925 1000 / 1000 Output Total 725 / 725 Balance -425 / -425 925 / 925 1000 / 1000 Weight 75.6 kg 78 kg Intake: IV 200 / 200 925 / 925 1000 / 1000 NS Inj 1,000 ML @ 100 mls/hr IV 200 / 200 925 / 925 1000 / 1000 .CONT .Q10H [facility] Rx#:[id number] Oral 100 / 100 Output: Urine 325 / 325 Emesis 400 / 400 Other: # Voids 4 Date of Last Bowel Movement 01/01/18 01/01/18 01/02/18 # Bowel Movements 2 # Emeses 3 Weight On Admission 78 kg <Rossi Blevins - Last Filed: 01/02/18 16:15> Results - Labs CBC & Chem 7: 01/02/18 06:10 01/02/18 06:10 Labs: Laboratory Results - last 24 hr 01/01/18 01/01/18 01/01/18 15:25 15:25 15:25 CBC w Diff Auto diff final WBC 10.4 RBC 4.43 Hgb 13.7 Hct 40.3 MCV 90.9 MCH 31.0 MCHC 34.1 RDW 14.8 Plt Count 195 MPV 8.9 Neut % (Auto) 89.1 H Lymph % (Auto) 6.1 L Foster % (Auto) 3.9 Eos % (Auto) 0.3 Baso % (Auto) 0.6 Neut # (Auto) 9.3 H Lymph # (Auto) 0.6 L Foster # (Auto) 0.4 Eos # (Auto) 0.0 Baso # (Auto) 0.1 WBC Differential . Differential Comment . PT 10.4 INR 1.0 APTT 26.1 Sodium 144 Potassium 3.4 L Chloride 107 Carbon Dioxide 26.0 Anion Gap 11 BUN 26 H Creatinine 0.97 Estimated GFR 55 L Random Glucose 158 H Calcium 8.5 Magnesium 2.3 Total Bilirubin 0.9 AST 24 ALT 23 Alkaline Phosphatase 126 H Total Protein 7.1 Albumin 3.3 L Lipase 255 Urine Color Urine Clarity Urine pH Ur Specific [place] Urine Protein Urine Glucose (UA) Urine Ketones Urine Occult Blood Urine Nitrate Urine Bilirubin Urine Urobilinogen Ur Leukocyte Esterase Urine WBC Urine WBC Clumps Ur Squamous Epith Cells Amorphous Sediment Urine Bacteria Micro UA Comment Ur Microscopic Review Urine Culture Comments Blood Type Antibody Screen 01/01/18 01/01/18 01/02/18 15:25 18:20 06:10 CBC w Diff Auto diff final WBC 6.9 RBC 3.86 L Hgb 11.8 Hct 35.6 MCV 92.3 MCH 30.5 MCHC 33.1 RDW 15.2 Plt Count 150 MPV 9.9 Neut % (Auto) 71.6 H Lymph % (Auto) 17.4 Foster % (Auto) 9.0 H Eos % (Auto) 1.2 Baso % (Auto) 0.8 Neut # (Auto) 4.9 Lymph # (Auto) 1.2 Foster # (Auto) 0.6 Eos # (Auto) 0.1 Baso # (Auto) 0.1 WBC Differential . Differential Comment . PT INR APTT Sodium Potassium Chloride Carbon Dioxide Anion Gap BUN Creatinine Estimated GFR Random Glucose Calcium Magnesium Total Bilirubin AST ALT Alkaline Phosphatase Total Protein Albumin Lipase Urine Color Yellow Urine Clarity Clear Urine pH 6.5 Ur Specific [place] 1.010 Urine Protein Negative Urine Glucose (UA) Negative Urine Ketones Trace H Urine Occult Blood Negative Urine Nitrate Negative Urine Bilirubin Negative Urine Urobilinogen 0.2 Ur Leukocyte Esterase Small H Urine WBC 0-5 Urine WBC Clumps Rare H Ur Squamous Epith Cells 0-5 Amorphous Sediment Moderate H Urine Bacteria Few H Micro UA Comment Culture indicated Ur Microscopic Review Microscopic reviewed Urine Culture Comments Culture indicated Blood Type O Negative Antibody Screen Negative 01/02/18 06:10 CBC w Diff WBC RBC Hgb Hct MCV MCH MCHC RDW Plt Count MPV Neut % (Auto) Lymph % (Auto) Foster % (Auto) Eos % (Auto) Baso % (Auto) Neut # (Auto) Lymph # (Auto) Foster # (Auto) Eos # (Auto) Baso # (Auto) WBC Differential Differential Comment PT INR APTT Sodium 147 H Potassium 3.4 L Chloride 112 H Carbon Dioxide 25.1 Anion Gap 10 BUN 20 H Creatinine 0.84 Estimated GFR 65 L Random Glucose 98 Calcium 8.0 L Magnesium Total Bilirubin AST ALT Alkaline Phosphatase Total Protein Albumin Lipase Urine Color Urine Clarity Urine pH Ur Specific [place] Urine Protein Urine Glucose (UA) Urine Ketones Urine Occult Blood Urine Nitrate Urine Bilirubin Urine Urobilinogen Ur Leukocyte Esterase Urine WBC Urine WBC Clumps Ur Squamous Epith Cells Amorphous Sediment Urine Bacteria Micro UA Comment Ur Microscopic Review Urine Culture Comments Blood Type Antibody Screen - Imaging Impressions Abdomen/Pelvis CT 01/01/18 15:11 CONCLUSION: 1. Mild peripancreatic streakiness is noted consistent with possible mild pancreatitis. Correlation with amylase and lipase values is suggested. 2. Large hiatal hernia containing the majority of the stomach. 3. Stable gastric volvulus. 4. Uncomplicated colonic diverticulosis is noted. 5. Thickening of the endometrium which is abnormal in a patient this age. Clinical correlation is recommended to rule out postmenopausal bleeding which would suggest endometrial carcinoma in a patient this age. 6. Grade I anterolisthesis of L4 in relation to L5. 7. Degenerative changes and scoliosis of the thoracolumbar spine. 8. Marked atrophy and scarring of the left kidney. 9. Multiple calcified nonobstructing bilateral renal calculi. 10. Rim-calcified lesion in the region of the splenic hilum measuring 2.6 cm consistent with possible splenic artery aneurysm. <Rylie Quick - Last Filed: 01/02/18 12:26> - Labs CBC & Chem 7: 01/02/18 06:10 01/02/18 06:10 Labs: Laboratory Results - last 24 hr 01/01/18 01/01/18 01/01/18 15:25 15:25 15:25 CBC w Diff Auto diff final WBC 10.4 RBC 4.43 Hgb 13.7 Hct 40.3 MCV 90.9 MCH 31.0 MCHC 34.1 RDW 14.8 Plt Count 195 MPV 8.9 Neut % (Auto) 89.1 H Lymph % (Auto) 6.1 L Foster % (Auto) 3.9 Eos % (Auto) 0.3 Baso % (Auto) 0.6 Neut # (Auto) 9.3 H Lymph # (Auto) 0.6 L Foster # (Auto) 0.4 Eos # (Auto) 0.0 Baso # (Auto) 0.1 WBC Differential . Differential Comment . PT 10.4 INR 1.0 APTT 26.1 Sodium 144 Potassium 3.4 L Chloride 107 Carbon Dioxide 26.0 Anion Gap 11 BUN 26 H Creatinine 0.97 Estimated GFR 55 L Random Glucose 158 H Calcium 8.5 Magnesium 2.3 Total Bilirubin 0.9 AST 24 ALT 23 Alkaline Phosphatase 126 H Total Protein 7.1 Albumin 3.3 L Lipase 255 Urine Color Urine Clarity Urine pH Ur Specific [place] Urine Protein Urine Glucose (UA) Urine Ketones Urine Occult Blood Urine Nitrate Urine Bilirubin Urine Urobilinogen Ur Leukocyte Esterase Urine WBC Urine WBC Clumps Ur Squamous Epith Cells Amorphous Sediment Urine Bacteria Micro UA Comment Ur Microscopic Review Urine Culture Comments Blood Type Antibody Screen 01/01/18 01/01/18 01/02/18 15:25 18:20 06:10 CBC w Diff Auto diff final WBC 6.9 RBC 3.86 L Hgb 11.8 Hct 35.6 MCV 92.3 MCH 30.5 MCHC 33.1 RDW 15.2 Plt Count 150 MPV 9.9 Neut % (Auto) 71.6 H Lymph % (Auto) 17.4 Foster % (Auto) 9.0 H Eos % (Auto) 1.2 Baso % (Auto) 0.8 Neut # (Auto) 4.9 Lymph # (Auto) 1.2 Foster # (Auto) 0.6 Eos # (Auto) 0.1 Baso # (Auto) 0.1 WBC Differential . Differential Comment . PT INR APTT Sodium Potassium Chloride Carbon Dioxide Anion Gap BUN Creatinine Estimated GFR Random Glucose Calcium Magnesium Total Bilirubin AST ALT Alkaline Phosphatase Total Protein Albumin Lipase Urine Color Yellow Urine Clarity Clear Urine pH 6.5 Ur Specific [place] 1.010 Urine Protein Negative Urine Glucose (UA) Negative Urine Ketones Trace H Urine Occult Blood Negative Urine Nitrate Negative Urine Bilirubin Negative Urine Urobilinogen 0.2 Ur Leukocyte Esterase Small H Urine WBC 0-5 Urine WBC Clumps Rare H Ur Squamous Epith Cells 0-5 Amorphous Sediment Moderate H Urine Bacteria Few H Micro UA Comment Culture indicated Ur Microscopic Review Microscopic reviewed Urine Culture Comments Culture indicated Blood Type O Negative Antibody Screen Negative 01/02/18 06:10 CBC w Diff WBC RBC Hgb Hct MCV MCH MCHC RDW Plt Count MPV Neut % (Auto) Lymph % (Auto) Foster % (Auto) Eos % (Auto) Baso % (Auto) Neut # (Auto) Lymph # (Auto) Foster # (Auto) Eos # (Auto) Baso # (Auto) WBC Differential Differential Comment PT INR APTT Sodium 147 H Potassium 3.4 L Chloride 112 H Carbon Dioxide 25.1 Anion Gap 10 BUN 20 H Creatinine 0.84 Estimated GFR 65 L Random Glucose 98 Calcium 8.0 L Magnesium Total Bilirubin AST ALT Alkaline Phosphatase Total Protein Albumin Lipase Urine Color Urine Clarity Urine pH Ur Specific [place] Urine Protein Urine Glucose (UA) Urine Ketones Urine Occult Blood Urine Nitrate Urine Bilirubin Urine Urobilinogen Ur Leukocyte Esterase Urine WBC Urine WBC Clumps Ur Squamous Epith Cells Amorphous Sediment Urine Bacteria Micro UA Comment Ur Microscopic Review Urine Culture Comments Blood Type Antibody Screen - Imaging Impressions Abdomen/Pelvis CT 01/01/18 15:11 CONCLUSION: 1. Mild peripancreatic streakiness is noted consistent with possible mild pancreatitis. Correlation with amylase and lipase values is suggested. 2. Large hiatal hernia containing the majority of the stomach. 3. Stable gastric volvulus. 4. Uncomplicated colonic diverticulosis is noted. 5. Thickening of the endometrium which is abnormal in a patient this age. Clinical correlation is recommended to rule out postmenopausal bleeding which would suggest endometrial carcinoma in a patient this age. 6. Grade I anterolisthesis of L4 in relation to L5. 7. Degenerative changes and scoliosis of the thoracolumbar spine. 8. Marked atrophy and scarring of the left kidney. 9. Multiple calcified nonobstructing bilateral renal calculi. 10. Rim-calcified lesion in the region of the splenic hilum measuring 2.6 cm consistent with possible splenic artery aneurysm. <Rossi Blevins - Last Filed: 01/02/18 16:15> Assessment and Plan - Plan Patient was seen and examined, agree with above note, we will plan on doing upper endoscopy for the coffee-ground emesis , patient also has anemia and heme- positive stool , I discussed her case with her daughter and with the patient and they would like her to proceed with colonoscopy also tomorrow so we will schedule colonoscopy tomorrow, I discussed with the patient plan and she is agreeable to have it done <Rossi Blevins - Last Filed: 01/02/18 16:15>
[2018-01-02] MEDS ORDERED: Sodium Chloride 0.45 % Inj 1,000 ML IV.CONT SCH (16:00)
[2018-01-02] MEDS ORDERED: PEG 3350/E-Lyte Soln 4000 ML Bottle PO ONE (17:00)
[2018-01-03] MEDS: Pantoprazole Inj 40 MG Vial IV.PUSH SCH (04:55)
--- NOTE | 2018-01-03 08:13 | P.PNIM ---
Subjective Interval history: Follow up GI bleed, nausea and vomiting. Patient seen and examined, walking the halls with her walker. Awaiting GI procedures today. No acute events overnight. VSS. Physical Exam Vital signs: Vital Signs 01/02/18 12:00 01/02/18 16:00 01/02/18 20:00 Temperature 97.2 F L 97.0 F L 99.1 F Pulse Rate 55 L 63 57 L Respiratory Rate 17 17 20 Blood Pressure 131/60 146/63 H 119/59 L Pulse Oximetry 96 95 94 L 01/03/18 00:00 Temperature 97.7 F Pulse Rate 58 L Respiratory Rate 20 Blood Pressure 120/60 Pulse Oximetry 93 L Intake & Output 01/02/18 01/03/18 01/03/18 18:59 06:59 18:59 Intake Total 1979 Balance 1979 Weight 78 kg Intake: IV 1500 / 1500 NS Inj 1,000 ML @ 100 mls/hr IV 1500 / 1500 .CONT .Q10H [facility] Rx#:[id number] Oral 480 / 480 Other: # Voids 6 5 Date of Last Bowel Movement 01/02/18 01/02/18 # Bowel Movements 7 5 Narrative: GENERAL: Well-developed, well-nourished patient in [facility]. SKIN: Warm and dry. No rash. HEAD: Normocephalic. Atraumatic. EYES: Pupils equal and round. No scleral icterus. No injection or drainage. ENT: No nasal bleeding or discharge. Mucous membranes pink and moist. NECK: Supple. Trachea midline. CARDIOVASCULAR: Regular rate and rhythm. S1, S2 noted. No murmur appreciated. RESPIRATORY: No accessory muscle use. Clear to auscultation. Breath sounds equal bilaterally. GASTROINTESTINAL: Abdomen soft, non-tender, nondistended. Normoactive bowel sounds x4. MUSCULOSKELETAL: No obvious deformities. Extremities without clubbing, cyanosis , or edema. Bilateral knee scars noted, healed. NEUROLOGICAL: Awake and alert. No obvious cranial nerve deficits. Motor grossly within normal limits. 5/5 muscle strength in bilateral upper and lower extremities. Normal speech. PSYCHIATRIC: Appropriate mood and affect; insight and judgment normal. Results - Labs CBC & Chem 7: 01/02/18 06:10 01/02/18 06:10 Microbiology 01/02/18 05:40 Stool Stool Occult Blood (FELICIA) - Final Hemoccult positive Assessment and Plan - Assessment (1) GI bleed Code(s): K92.2 - Gastrointestinal hemorrhage, unspecified Status: Acute - Plan This is an 82-year-old female patient with: GI bleed Nausea and vomiting, coffee-ground emesis. resolved. -Patient complaint of 1-day history of nausea and coffee-ground emesis. -Hemoglobin 13.7/Hematocrit 40.3, dropping to 11.8. Hemoccult stool positive. Monitor CBC this morning. -Consult placed to gastroenterology. Spoke to GI, appreciate input and recommendations. -Patient rec'd Golytely prep for EGD/colonoscopy today. -Monitor for any active bleeding, none overnight. Continue Protonix 40 mg IV BID. Zofran as needed for nausea. -Ensure hydration, continue IVF. NPO. -Abdominal/pelvis CT showing large hiatal hernia, diverticulosis, and a possible splenic artery aneurysm measuring 2.6cm. Await GI recommendations. -Supportive care. Hypertension, chronic: Continue home amlodipine. Monitor for hypotension. Monitor BP trends. Hyperlipidemia, chronic: Continue home statin. DVT prophylaxis: SCDs. Hold chemical prophylaxis per GI bleed. Discharge Planning: Awaiting EGD/colonoscopy, final recs from GI, and clinical improvement.
[2018-01-03] MEDS: amLODIPine 5 MG Tablet PO SCH (08:41)
[2018-01-03 09:43] LABS: Baso # (Auto) 0.1 th/mm3 (0.0-0.2); Baso % (Auto) 1.6 % (0.0-2.0); Eos # (Auto) 0.2 th/mm3 (0.0-0.4); Eos % (Auto) 2.9 % (0.0-4.0); Hemoglobin 12.6 gm/dL (11.6-15.3); Lymph # (Auto) 1.2 th/mm3 (1.0-4.8); Lymph % (Auto) 22.8 % (9.0-44.0); Mean Corpuscular HGB Conc 33.2 % (32.0-36.0); Mean Corpuscular Hemoglobin 30.8 pg (27.0-34.0); Mean Corpuscular Volume 92.6 fL (80.0-100.0); Mean Platelet Volume 11.6 fL (7.0-11.0); Mono # (Auto) 0.3 th/mm3 (0.0-0.9); Mono % (Auto) 6.4 % (0.0-8.0); Neut # (Auto) 3.6 th/mm3 (1.8-7.7); Neut % (Auto) 66.3 % (16.0-70.0); Platelet Count 114 th/mm3 (150-450); Red Cell Distribution Width 15.1 % (11.6-17.2); White Blood Count 5.4 th/mm3 (4.0-11.0)
[2018-01-03 10:02] LABS: Calcium 8.3 mg/dL (8.5-10.1)
[2018-01-03 10:07] LABS: Potassium 3.5 meq/L (3.5-5.1)
[2018-01-03] MEDS ORDERED: Metoprolol Tartrate 25 MG Tablet PO ONE (11:48)
[2018-01-03] MEDS ORDERED: Chlorhexidine Gluconate 2% 1 Pack (2 Cloths) TOPICAL ONE (11:48)
[2018-01-03] MEDS ORDERED: Sodium Chlor 0.9% Inj 500 ML IV.SIG SCH (12:00)
--- NOTE | 2018-01-03 14:14 | GIPROC ---
[facility] [address] [place] [address], [id number] EGD WITH DILATION PROCEDURE REPORT EXAM DATE: 01/03/2018 PATIENT NAME: Beatriz Gilbert MR#: [id number] BIRTHDATE: 1935 ATTENDING: Sharon Dillard MD ORDER #: [id number] CAR ESCORT: Chacorta [place] and Cami Powers STATUS: inpatient INDICATIONS: The patient is a 82 yr old female here for an EGD with dilation due to anemia hem positive stool PROCEDURE PERFORMED: EGD w/ biopsy EGD w/ dilation of esophagus via guidewire MEDICATIONS: None and Per Anesthesia. TOPICAL ANESTHETIC: none CONSENT: The patient understands the risks and benefits of the procedure and understands that these risks include, but are not limited to: sedation, allergic reaction, infection, perforation and/or bleeding. Alternative means of evaluation and treatment include, among others: physical exam, x-rays, and/or surgical intervention. The patient elects to proceed with this endoscopic procedure. medical equipment was checked for proper function. Hand hygiene and appropriate measures for infection prevention was taken. After the risks, benefits and alternatives of the procedure were thoroughly explained, Informed consent was verified, confirmed and timeout was successfully executed by the treatment team. The patient was anesthetized with topical anesthesia and the Pentax EG-[id number] endoscope was introduced through the mouth and advanced to the second portion of the duodenum. The instrument was slowly withdrawn as the mucosa was fully examined. Esophagitis-biopsy stricture distal esophagus s/p dilatation savary 17. Duodenum normal-biopsy gastritis antrum-biopsy. Dilation was performed at gastroesophageal junction. DILATOR: SIZE(S): RESISTANCE: HEME: APPEARANCE: Dilator: Savary over guidewire Size(s): 17 COMMENT: Retroflexed views revealed a hiatal hernia ADVERSE EVENTS: There were no complications. IMPRESSIONS: 1. Esophagitis-biopsy stricture distal esophagus s/p dilatation savary 17 2. Duodenum normal-biopsy gastritis antrum-biopsy 3. Retroflexed views revealed a hiatal hernia RECOMMENDATIONS: 1. Await biopsy results. Biopsy results will not be ready for 7-10 days. If you don't hear from us in two weeks, call our office for biopsy results. 2. Anti-reflux regimen 3. Dilatations PRN 4. Start PPI REPEAT EXAM: Return 6 months EGD Sharon Dillard MD eSigned: Sharon Dillard MD 01/03/2018 2:14 PM cc: PATIENT NAME: Beatriz Gilbert MR#: [id number]
--- NOTE | 2018-01-03 14:16 | GIPROC ---
[facility] [address] [place] [address], [id number] COLONOSCOPY PROCEDURE REPORT EXAM DATE: 01/03/2018 PATIENT NAME: Beatriz Gilbert MR #: [id number] BIRTHDATE: 1935 ENDOSCOPIST: Sharon Dillard MD ORDER #: [id number] REVENUE OFFICER: Cami Powers and [employer] [place] STATUS: inpatient INDICATIONS: The patient is a 82 yr old female here for a colonoscopy due to gi bleeding, anemia PROCEDURE PERFORMED: Colonoscopy, diagnostic MEDICATIONS: None and Per Anesthesia. PREP QUALITY: poor PREP TYPE:Other: ESTIMATED BLOOD LOSS: None CONSENT: The patient understands the risks and benefits of the procedure and understands that these risks include, but are not limited to: sedation, allergic reaction, infection, perforation and/or bleeding. Alternative means of evaluation and treatment include, among others: physical exam, x-rays, and/or surgical intervention. The patient elects to proceed with this endoscopic procedure. medical equipment was checked for proper function. Hand hygiene and appropriate measures for infection prevention was taken. After the risks, benefits and alternatives of the procedure were thoroughly explained, Informed consent was verified, confirmed and timeout was successfully executed by the treatment team. A digital exam revealed external hemorrhoids The Pentax [id number] endoscope was introduced through the anus and advanced to the cecum, which was identified by both the appendix and ileocecal valve. The instrument was then slowly withdrawn as the colon was fully examined. COLON FINDINGS: Diverticulosis sigmoid,descending. Retroflexed views revealed internal hemorrhoids and Retroflexed views revealed small internal hemorrhoids The scope was then completely withdrawn from the patient and the procedure terminated. PROCEDURE WITHDRAWAL TIME:6minutes ADVERSE EVENTS: There were no complications. IMPRESSIONS: 1. Diverticulosis sigmoid,descending 2. Retroflexed views revealed internal hemorrhoids 3. Retroflexed views revealed small internal hemorrhoids 4. Revealed external hemorrhoids RECOMMENDATIONS: 1. Benefiber 2 tsp daily 2. Probiotics from any C or health food store 3. Yearly rectal exams RECALL: Return 1 year Colonoscopy Sharon Dillard MD eSigned: Sharon Dillard MD 01/03/2018 2:15 PM cc:
--- NOTE | 2018-01-03 14:23 | P.DS ---
Date of admission: 01/01/18 17:20 Primary care physician: Jameson Amezquita MD Anticipated date of discharge: 01/03/18 Brief History from admission: This is an 82-year-old female patient with a known medical history of hypertension and hyperlipidemia who presented to the ED with complaints of nausea, coffee-ground emesis x 1 day. Patient states that she went to [facility] today and shortly after eating breakfast she developed nausea and vomiting with coffee-ground emesis. She denies any black or bloody stools. Denies any recent fever, chills, headache, abdominal pain, diarrhea. Patient underwent a right knee replacement [address] Livingston. It should also be noted that patient underwent a left knee surgery in June of this year as well and shortly after developed nausea and vomiting. Patient's last colonoscopy was 5 years ago which was reportedly negative. Does admit to taking a daily aspirin. Denies any tobacco use. PCP is Dr. Amezquita, last seen 3 weeks ago without any new changes to her medications. DS: Diagnosis - Discharge Diagnosis (1) GI bleed Status: Acute DS: Medications - Discharge Medications Prescriptions: pantoprazole [Protonix] 40 mg PO DAILY 14 Days #14 tab DS: Summary Hospital Course: This is an 82-year-old female patient with GI bleed and nausea and vomiting, coffee-ground emesis. Patient complaint of 1-day history of nausea and coffee- ground emesis. Hemoglobin 13.7/Hematocrit 40.3, dropping to 11.8. Hemoccult stool positive. Consult placed to gastroenterology who followed patient during hospitalization. Underwent EGD and colonoscopy, gastritis seen and biopsies taken. Started on PPI, benefiber. Antiemetics as needed. Abdominal/pelvis CT showing large hiatal hernia, diverticulosis, and a possible splenic artery aneurysm measuring 2.6cm. Spoke to vascular surgeon who reviewed CT scan and determined that surgical intervention is not needed. Patient also has hypertension and hyperlipidemia which were stable during hospitalization. Stable for DC. RX as written. Follow up PCP and GI. Activity as ordered. Diet as tolerated. Stable to DC home. - Time Spent with Patient Total time spent providing and/or coordinating discharge services: Greater than 30 minutes - Quality: VTE Deep Vein Thrombosis/Pulmonary Embolism Present on Admission: No Exam Vital signs: Vital Signs 01/02/18 16:00 01/02/18 20:00 01/03/18 00:00 Temperature 97.0 F L 99.1 F 97.7 F Pulse Rate 63 57 L 58 L Respiratory Rate 17 20 20 Blood Pressure 146/63 H 119/59 L 120/60 Pulse Oximetry 95 94 L 93 L 01/03/18 08:00 Temperature 97.0 F L Pulse Rate 57 L Respiratory Rate 18 Blood Pressure 142/71 H Pulse Oximetry 96 Intake & Output 01/02/18 01/03/18 01/03/18 18:59 06:59 18:59 Intake Total 1979 Balance 1979 Weight 78 kg Intake: IV 1500 / 1500 NS Inj 1,000 ML @ 100 mls/hr IV 1500 / 1500 .CONT .Q10H [facility] Rx#:[id number] Oral 480 / 480 Other: # Voids 6 5 Date of Last Bowel Movement 01/02/18 01/02/18 # Bowel Movements 7 5 Narrative: GENERAL: Well-developed, well-nourished patient in [facility]. SKIN: Warm and dry. No rash. HEAD: Normocephalic. Atraumatic. EYES: Pupils equal and round. No scleral icterus. No injection or drainage. ENT: No nasal bleeding or discharge. Mucous membranes pink and moist. NECK: Supple. Trachea midline. CARDIOVASCULAR: Regular rate and rhythm. S1, S2 noted. No murmur appreciated. RESPIRATORY: No accessory muscle use. Clear to auscultation. Breath sounds equal bilaterally. GASTROINTESTINAL: Abdomen soft, non-tender, nondistended. Normoactive bowel sounds x4. MUSCULOSKELETAL: No obvious deformities. Extremities without clubbing, cyanosis , or edema. Bilateral knee scars noted, healed. NEUROLOGICAL: Awake and alert. No obvious cranial nerve deficits. Motor grossly within normal limits. 5/5 muscle strength in bilateral upper and lower extremities. Normal speech. PSYCHIATRIC: Appropriate mood and affect; insight and judgment normal. Results Procedures completed during hospitalization: See above. Colonoscopy and EGD on 01/03/2018. Labs on day of discharge: Labs from last 24 hours 01/03/18 01/03/18 09:00 09:00 CBC w Diff Auto diff final WBC 5.4 RBC 4.10 Hgb 12.6 Hct 38.0 MCV 92.6 MCH 30.8 MCHC 33.2 RDW 15.1 Plt Count 114 L MPV 11.6 H Neut % (Auto) 66.3 Lymph % (Auto) 22.8 [place] % (Auto) 6.4 Eos % (Auto) 2.9 Baso % (Auto) 1.6 Neut # (Auto) 3.6 Lymph # (Auto) 1.2 [place] # (Auto) 0.3 Eos # (Auto) 0.2 Baso # (Auto) 0.1 WBC Differential . Differential Comment . Sodium 145 Potassium 3.5 Chloride 108 H Carbon Dioxide 26.0 Anion Gap 11 BUN 9 Creatinine 0.84 Estimated GFR 65 L Random Glucose 90 Calcium 8.3 L Preliminary micro results at discharge 01/01/18 18:20 Urine Culture - Preliminary Clean Catch Urine Immature growth - reincubate - Impressions ITS Impressions Abdomen/Pelvis CT 01/01/18 15:11 CONCLUSION: 1. Mild peripancreatic streakiness is noted consistent with possible mild pancreatitis. Correlation with amylase and lipase values is suggested. 2. Large hiatal hernia containing the majority of the stomach. 3. Stable gastric volvulus. 4. Uncomplicated colonic diverticulosis is noted. 5. Thickening of the endometrium which is abnormal in a patient this age. Clinical correlation is recommended to rule out postmenopausal bleeding which would suggest endometrial carcinoma in a patient this age. 6. Grade I anterolisthesis of L4 in relation to L5. 7. Degenerative changes and scoliosis of the thoracolumbar spine. 8. Marked atrophy and scarring of the left kidney. 9. Multiple calcified nonobstructing bilateral renal calculi. 10. Rim-calcified lesion in the region of the splenic hilum measuring 2.6 cm consistent with possible splenic artery aneurysm. Discharge Plan - Discharge Disposition Patient Disposition: 01 Discharge Home - Discharge Condition Condition: Good - Discharge Order Discharge Orders: Discharge Order (Routine); Ordered 01/03/18 Ordered By: Denise Pennington - Discharge Details Anticipated Discharge Date: 01/03/18 - Physicians Team Primary Care Provider: Jameson Amezquita Attending Provider: Manish Patel Other Providers: Rossi Blevins MD ; [employer]
--- NOTE | 2018-01-03 14:34 | P.DCO ---
- Diagnosis (1) History of total knee arthroplasty Status: Acute (2) S/P total knee arthroplasty Status: Acute (3) GI bleed Status: Acute - Physical Therapy Order: Evaluate and treat, Improve ambulation, Strength and gait training - Home Health Nursing Order: Medical education, Signs/symptoms of disease process, Nursing assessment with vital signs - Case Management Consult Case Management Consult-Home Health: Yes - Certification I have seen patient Beatriz Gilbert on 01/03/18. My clinical findings support the need for the requested home health care services because: Patient has SOB I certify that my clinical findings support that this patient is homebound because: Post-op weakness, Unsteady gait/balance
[2018-01-03 15:44] VITALS: BP 162/70; PULSE 72; RESP 18; TEMP 97.1; O2SAT 96
== END 2018-01-03 18:26 | disposition home or self-care (01) ==
LOC: PHEDA 14:51 → PHED 14:51 → PH3 17:35
PROVIDERS: ADMIT Hospitalist; ATTEND Hospitalist
PROC: PANENDO (2018-01-03 13:30)
PROC: COLONOS (2018-01-03 13:30)
DX: K21.0 Gastro-esophageal reflux disease with esophagitis; K27.4 Chronic or unspecified peptic ulcer, site unspecified, with hemorrhage; K64.8 Other hemorrhoids; K44.9 Diaphragmatic hernia without obstruction or gangrene; Z85.3 Personal history of malignant neoplasm of breast; M41.85 Other forms of scoliosis, thoracolumbar region; E78.5 Hyperlipidemia, unspecified; Z79.82 Long term (current) use of aspirin; D64.9 Anemia, unspecified; K64.4 Residual hemorrhoidal skin tags; I10 Essential (primary) hypertension; K29.71 Gastritis, unspecified, with bleeding; Z92.3 Personal history of irradiation; M43.16 Spondylolisthesis, lumbar region; K57.31 Diverticulosis of large intestine without perforation or abscess with bleeding; R93.89 Abnormal findings on diagnostic imaging of other specified body structures; Z79.899 Other long term (current) drug therapy; K31.89 Other diseases of stomach and duodenum; N20.0 Calculus of kidney